=== PATIENT | male | born 1940 ===

== ENCOUNTER 2018-01-01 10:32 | Day surgery (SDC) | payer MEDICARE ==
[2017-10-04 09:38] VITALS: BMI 29.0
[2018-01-01 11:07] LABS: BASO # 0.01 K/mm3 (0.0-2.0); BASO % 0.1 % (0.0-3.0); EOS # 0.1 (0.0-0.7); EOS % 1.6 % (1.5-5.0); GRAN # 4.05 (1.4-6.5); GRAN % 58.2 % (50.0-68.0); HEMOGLOBIN 11.9 g/dL (14.0-18.0); LYMPH # 2.4 (1.2-3.4); LYMPH % 34.1 % (22.0-35.0); MEAN CORPUSCULAR HEMOGLOBIN 30.8 pg (25.0-35.0); MEAN CORPUSCULAR HGB CONC 33.1 g/dl (31.0-37.0); MEAN PLATELET VOLUME 9.9 fl (7.0-11.0); MONO # 0.4 (0.1-0.6); RBC 3.86 10^6/uL (3.5-6.1)
[2018-01-01 11:08] LABS: BLOOD UREA NITROGEN 25 mg/dL (7-21); CALCIUM 9.9 mg/dL (8.4-10.5); GFR AFRICAN-AMERICAN > 60; GFR NON-AFRICAN AMERICAN > 60
[2018-01-01 11:13] LABS: INR 0.87 (0.93-1.08); PARTIAL THROMBOPLASTIN TIME 31.3 Seconds (25.1-36.5)
[2018-01-01] MEDS ORDERED: Lidocaine 2% Inj (20ml) ONE (15:40)
[2018-01-01] MEDS ORDERED: Midazolam 2 MG/2 ML VIAL ONE ×2 (15:41→16:06)
[2018-01-01] MEDS ORDERED: Heparin 2,000 ML IV ONE (15:42)
[2018-01-01] MEDS ORDERED: Iodixanol 320 MG/ML 100 ML BOTTLE IV ONE (15:42)
[2018-01-01] MEDS ORDERED: Nitroglycerin 50mg in D5W 50 MG/250 ML BOTTLE IV ONE (15:42)
[2018-01-01] MEDS ORDERED: Iodixanol 320 MG/ML 200 ML BOTTLE IV ONE (15:42)
[2018-01-01] MEDS ORDERED: DiphenhydrAMINE 50 mg/ml Inj ONE (16:14)
[2018-01-01] MEDS ORDERED: Oxycodone/Acetaminophen 5/325 mg Tab PO PRN (18:03)
[2018-01-01] MEDS: Sodium Chloride 0.45% 1,000 ML IV SCH (19:00)
--- NOTE | 2018-01-01 19:12 | VASCULAR ---
PROCEDURE: 1. Abdominal aortogram and bilateral lower extremity runoff with left groin puncture and retrograde right pedal lacks the as HISTORY: Severe peripheral vascular disease. Nonhealing ulcer lateral aspect right mid foot. Diabetes. Previous smoker. PHYSICIAN(S): Yoav Rios M.D. TECHNIQUE: The relative risks and indications of the procedure were explained to the patient and consent obtained. The patient was hydrated prior to the procedure and the appropriate labs drawn. The patient was placed supine on the arteriogram table and the left groin prepped and draped in the usual sterile fashion. Conscious sedation and monitoring were provided throughout the procedure by a nurse. Via a left common femoral artery approach, a 5 Dutch sheath was placed in the left groin. Through the sheath and over a guidewire, a 5 Dutch flush catheter was placed in the abdominal aorta at the level of the renal arteries and a PA DSA abdominal aortogram performed. The catheter was pulled down to the aortic bifurcation and bilateral oblique DSA pelvic arteriograms performed. Overlapping bilateral lower extremity DSA arteriograms were obtained from the inguinal ligaments to the feet. A 0.035 angled Glidewire was advanced over the bifurcation and placed in the distal right SFA. A 6 Dutch 70 cm Yao sheath was placed in the distal right SFA. Heparin 4000 units IV and nitroglycerin in 250 mcg aliquots were given. Magnification images of the right foot in a lateral projection were performed. The diseased proximal right posterior tibial artery was engaged with a 5 Dutch catheter and angled Glidewire. Multiple catheters and wires were used in attempt to cross the chronically occluded right posterior tibial artery. These were unsuccessful. The right ankle was prepped and draped usual sterile fashion. With significant difficulty, the distal right posterior tibial artery was punctured with a micropuncture set. The calcified occluded right posterior tibial artery was probed with various 0.018 and 0.014 guidewires. The occlusion of the right posterior tibial artery could not be crossed in a retrograde direction. The catheters removed hemostasis obtained. The patient tolerated the procedure well. FINDINGS: There are single renal arteries bilaterally which are widely patent and normal in appearance. The nephrograms are symmetric in appearance. The infrarenal abdominal aorta is widely patent without a radiographically significant stenosis. The aortic bifurcation is widely patent. The common and external iliac arteries are normal in appearance without a significant stenosis. The internal iliac arteries are patent bilaterally. Right lower extremity: The right common femoral artery is patent with polypoid posterior plaque.. The right profunda femoral artery is patent. The right superficial femoral artery is patent and continuous without a radiographically significant stenosis. The right popliteal artery is continuous with a calcified 50 percent plaque at the patella. There is severe right trifurcation disease. Heavy calcification is noted. All 3 tibial arteries are occluded proximally. There is reconstitution of the distal right posterior tibial artery 6 cm above the ankle. There is reconstitution of a disease terminal right anterior tibial artery. The right dorsalis pedis artery is patent. Left lower extremity: Left common femoral artery is patent with mild posterior plaque.. The left profunda femoral artery is patent. The left superficial femoral artery is patent and continuous without a radiographically significant stenosis. Calcified eccentric stenoses are noted in the left popliteal artery. There is severe left trifurcation and tibial occlusive disease. The left anterior tibial artery occludes proximally. The predominant supply the left foot is the left posterior tibial artery. There is a polypoid severe stenosis of the left tibioperoneal trunk. The left peroneal artery reconstitutes proximally IMPRESSION: 1.Severe bilateral trifurcation, tibial, and pedal occlusive disease. 2. Unable across the right posterior tibial artery occlusion in an antegrade or retrograde direction. 3. The patient will be evaluated for right popliteal - distal bypass.
--- NOTE | 2018-01-02 01:16 | CP.PCM.CON ---
History of Present Illness - History of Present Illness History of Present Illness: Vascular surgery consult note for Dr. Teixeira Consulted for: PVD, non-healing right foot wound Patient is a 77M with PMH including DM, HTN, and PVD with chronic right foot ulcer. Patient is normally a very active person who ambulates on his own. He states that in July 2017 he slipped and fell and sustained a fracture of his distal fibula. He was admitted at [facility], had a closed reduction of the fracture and developed the wound on his right dorsal lateral foot from the dressings. He underwent multiple wound debridements by podiatry, was diagnosed with osteomyelitis, and was found to have BL tibial vascual disease worse on the right, with an angiocatherization and angioplasty of the right GEOTHERMAL OPERATING ENGINEER and tibioperoneal trunk by Dr. Calzada in September 2017. Wound has not healed and patient came to [facility] [place] today for same day angiocatheterization with Dr. Rios. Angiocath revealed Severe bilateral trifurcation, tibial, and pedal occlusive disease. Right posterior tibial artery occlusion was non-transversible in an antegrade or retrograde direction. patient was admitted for post operative observation and DR. Teixeira consulted for possible fem-popliteal bypass consideration Patient reports that he has claudication in the right leg with walking, and that when he sits his leg goes numb. Admits to a long smoking history that he quit last year. Denies any fevers, chills, or fould smelling discharger from the wound PMH: DM, HTN, and PVD with chronic right foot ulcer, osteomyelitis, nephrolithiasis, glaucoma PSH: BL inguinal hernia repairs, angioplasty right lower extremity, lithotripsy ALL: NKDA Social: 1PPD for 12 years, quit 2017. Heavy drinking history quit 18 years ago, denies illicit substances Review of Systems - Review of Systems All systems: reviewed and no additional remarkable complaints except (as per HPI ) Past Patient History - Past Medical History & Family History Past Medical History?: Yes - Past Social History Smoking Status: Former Smoker Alcohol: Other (former) Drugs: Denies - CARDIAC Hx Pacemaker: No - PULMONARY Hx Respiratory Disorders: No - NEUROLOGICAL Hx Paralysis: No - HEENT Hx HEENT Problems: No - RENAL Hx Chronic Kidney Disease: No - ENDOCRINE/METABOLIC Hx Endocrine Disorders: Yes Hx Diabetes Mellitus Type 2: Yes - HEMATOLOGICAL/ONCOLOGICAL Hx Blood Transfusions: No - INTEGUMENTARY Hx Dermatological Problems: Yes Other/Comment: Right distula fibula ulcer - MUSCULOSKELETAL/RHEUMATOLOGICAL Hx Musculoskeletal Disorders: Yes - GASTROINTESTINAL Hx Gastrointestinal Disorders: No - GENITOURINARY/GYNECOLOGICAL Hx Genitourinary Disorders: No - PSYCHIATRIC Hx Emotional Abuse: No Hx Physical Abuse: No Hx Substance Use: No - SURGICAL HISTORY Hx Surgeries: Yes - ANESTHESIA Hx Anesthesia Reactions: No Hx Malignant Hyperthermia: No Meds Allergies/Adverse Reactions: Allergies Allergy/AdvReac Type Severity Reaction Status Date / Time No Known Allergies Allergy Verified 10/04/17 09:41 - Medications Medications: Current Medications Acetaminophen (Tylenol 325mg Tab) 650 mg PO Q4H PRN PRN Reason: Pain, Mild (1-3) Amlodipine Besylate (Norvasc) 5 mg PO DAILY [facility] Ampicillin (Ampicillin) 500 mg PO DAILY [facility] PRN Reason: Protocol Atorvastatin Calcium (Lipitor) 20 mg PO DAILY [facility] Ciprofloxacin (Cipro) 500 mg PO BID [facility] PRN Reason: Protocol Clopidogrel Bisulfate (Plavix) 75 mg PO DAILY [facility] Sodium Chloride (Sodium Chloride 0.45%) 1,000 mls @ 80 mls/hr IV .[id number] [facility] Last Admin: 01/01/18 19:00 Dose: 80 mls/hr Metformin HCl (Glucophage Xr) 1,000 mg PO BID [facility] Ondansetron HCl (Zofran Inj) 4 mg IVP ONCE PRN PRN Reason: Nausea/Vomiting Oxycodone/Acetaminophen (Percocet 5/325 Mg Tab) 1 tab PO Q4H PRN PRN Reason: Pain, moderate (4-7) Stop: 01/04/18 18:04 Pioglitazone HCl (Actos) 15 mg PO DAILY [facility] Tamsulosin HCl (Flomax) 0.4 mg PO DAILY [facility] Physical Exam - Constitutional Appears: Well, Non-toxic, No Acute Distress - Head Exam Head Exam: ATRAUMATIC, NORMOCEPHALIC - Eye Exam Eye Exam: Normal appearance. absent: Conjunctival injection, Scleral icterus - ENT Exam ENT Exam: Mucous Membranes Moist, Normal Oropharynx - Respiratory Exam Respiratory Exam: NORMAL BREATHING PATTERN. absent: Accessory Muscle Use, Respiratory Distress - Cardiovascular Exam Cardiovascular Exam: RRR - GI/Abdominal Exam GI & Abdominal Exam: Soft. absent: Distended, Hernia, Tenderness - Extremities Exam Extremities exam: Negative for: calf tenderness, pedal edema Additional comments: access sites with dressings c/d/i, no swelling or bleeding right dorsal lateral foot with oval wound approximatley 3cm in diameter extending into the subcutaneous fat with no overt tendon exposure, surrounding erythema, necrotic tissue, foul smell, or drianage BL DP and TP with strong dopplerable signals. Foot warm - Neurological Exam Neurological exam: Alert, Oriented x3 - Psychiatric Exam Psychiatric exam: Normal Affect, Normal Mood - Skin Skin Exam: Dry, Normal Color, Warm Results - Vital Signs Recent Vital Signs: Last Vital Signs Temp 98 F 01/01/18 23:21 Pulse 68 01/01/18 23:30 Resp 18 01/01/18 23:30 BP 136/62 01/01/18 23:30 Pulse Ox 94 L 01/01/18 23:21 - Labs Result Diagrams: 01/01/18 10:45 01/01/18 10:45 Labs: Laboratory Results - last 24 hr 01/01/18 01/01/18 01/01/18 10:45 10:45 10:45 WBC 7.0 RBC 3.86 Hgb 11.9 L Hct 35.9 L MCV 93.0 MCH 30.8 MCHC 33.1 RDW 14.0 Plt Count 247 MPV 9.9 Gran % 58.2 Lymph % (Auto) 34.1 [place] % (Auto) 6.0 Eos % (Auto) 1.6 Baso % (Auto) 0.1 Gran # 4.05 Lymph # (Auto) 2.4 [place] # (Auto) 0.4 Eos # (Auto) 0.1 Baso # (Auto) 0.01 PT 10.0 INR 0.87 L APTT 31.3 Sodium 144 Potassium 5.0 Chloride 104 Carbon Dioxide 28 Anion Gap 17 BUN 25 H Creatinine 1.0 Est GFR ( Amer) > 60 Est GFR (Non-Af Amer) > 60 POC Glucose (mg/dL) Random Glucose 128 H Calcium 9.9 01/01/18 21:31 WBC RBC Hgb Hct MCV MCH MCHC RDW Plt Count MPV Gran % Lymph % (Auto) [place] % (Auto) Eos % (Auto) Baso % (Auto) Gran # Lymph # (Auto) [place] # (Auto) Eos # (Auto) Baso # (Auto) PT INR APTT Sodium Potassium Chloride Carbon Dioxide Anion Gap BUN Creatinine Est GFR ( Amer) Est GFR (Non-Af Amer) POC Glucose (mg/dL) 153 H Random Glucose Calcium Assessment & Plan - Assessment and Plan (Free Text) Assessment: 77M with severe tibioperonial disease worse on the right and chronic right dorsal lateral foot wound, refractory to revascularization attempts, antibiotics , and debridements Plan: No indicatino for emergent surgery Will discuss options and plan of action with Dr. Teixeira--further recs per her F/U AM labs PT Local wound care per podiatry Continue plavix until OR time decided PRN pain medication Will discuss with Dr. Puneet Walker, PGY2
[2018-01-02 06:31] LABS: HEMOGLOBIN 11.3 g/dL (14.0-18.0); MEAN CELL VOLUME 92.2 fl (80.0-105.0); MEAN CORPUSCULAR HEMOGLOBIN 30.2 pg (25.0-35.0); MEAN CORPUSCULAR HGB CONC 32.8 g/dl (31.0-37.0); MEAN PLATELET VOLUME 9.9 fl (7.0-11.0); RBC 3.74 10^6/uL (3.5-6.1); WHITE BLOOD COUNT 7.1 10^3/ul (4.5-11.0)
[2018-01-02 07:05] LABS: CALCIUM 9.2 mg/dL (8.4-10.5)
[2018-01-02 07:11] LABS: BLOOD UREA NITROGEN 18 mg/dL (7-21); GFR AFRICAN-AMERICAN > 60; GFR NON-AFRICAN AMERICAN > 60
[2018-01-02] MEDS: Sodium Chloride 0.45% 1,000 ML IV SCH (08:09)
[2018-01-02 12:20] VITALS: O2SAT 97
--- NOTE | 2018-01-02 12:34 | RAD ---
PROCEDURE: Right Foot Radiographs. HISTORY: r/o osteomyelitis COMPARISON: None. FINDINGS: BONES: Normal. No fracture. No evidence of osteomyelitis JOINTS: Degenerative changes are seen in the 1st MTP joint. SOFT TISSUES: Normal. OTHER FINDINGS: None. IMPRESSION: There is no evidence of osteomyelitis
[2018-01-02 12:57] VITALS: BP 140/80; PULSE 80; RESP 17; TEMP 98.5
== END 2018-01-02 13:43 | disposition home or self-care (01) ==
LOC: SDSVAS 10:32 → 2RNO 19:00 → SDSVAS 01-02 13:43
PROVIDERS: ATTEND Radiology Vascular & Interventional Radiology
DX: E11.51 Type 2 diabetes mellitus with diabetic peripheral angiopathy without gangrene (principal); I70.209 Unspecified atherosclerosis of native arteries of extremities, unspecified extremity; E11.621 Type 2 diabetes mellitus with foot ulcer; L97.519 Non-pressure chronic ulcer of other part of right foot with unspecified severity; E11.69 Type 2 diabetes mellitus with other specified complication; M86.9 Osteomyelitis, unspecified; I10 Essential (primary) hypertension; H40.9 Unspecified glaucoma; Z87.891 Personal history of nicotine dependence; Z87.81 Personal history of (healed) traumatic fracture; Z87.442 Personal history of urinary calculi
CPT/HCPCS: 36140; 36247; 36415 ×2; 73630; 75625; 75716; 80048 ×2; 82948 ×2; 85025; 85027; 85610; 85730; 99152; 99153; C1725 ×3; C1760; C1769 ×6; C1887; C1892; C1894; J1200; J1644 ×2; J2250; J2405; J3010; J7030 ×2; Q9966; Q9967

== ENCOUNTER 2018-01-13 10:10 | Inpatient (IN) | payer MEDICARE ==
[2018-01-13] MEDS ORDERED: Vancomycin 1 g Inj IVPB ONE (11:45)
[2018-01-13] MEDS ORDERED: Vancomycin 1gm in NS 250ml 1 GM/250 ML BAG IVPB ONE (11:45)
[2018-01-13 11:50] LABS: VENOUS BLOOD GAS BASE EXCESS -2.3 mmol/L (0.0-2.0); VENOUS BLOOD GAS PO2 56 mm/Hg (30-55); VENOUS BLOOD PH 7.29 (7.32-7.43)
[2018-01-13 11:52] LABS: BASO # 0.02 K/mm3 (0.0-2.0); BASO % 0.2 % (0.0-3.0); EOS # 0.1 (0.0-0.7); EOS % 1.7 % (1.5-5.0); GRAN # 4.67 (1.4-6.5); GRAN % 58.4 % (50.0-68.0); HEMOGLOBIN 11.7 g/dL (14.0-18.0); LYMPH # 2.5 (1.2-3.4); LYMPH % 31.2 % (22.0-35.0); MEAN CELL VOLUME 92.6 fl (80.0-105.0); MEAN CORPUSCULAR HGB CONC 33.4 g/dl (31.0-37.0); MEAN PLATELET VOLUME 9.8 fl (7.0-11.0); MONO # 0.7 (0.1-0.6); MONO % 8.5 % (1.0-6.0); RBC 3.78 10^6/uL (3.5-6.1); RED CELL DISTRIBUTION WIDTH 13.9 % (11.5-14.5)
[2018-01-13 11:59] VITALS: BMI 29.0
[2018-01-13 12:08] LABS: ALB/GLOB RATIO 1.5 (1.1-1.8); ALBUMIN 4.4 g/dL (3.0-4.8); ALT/SGPT 23 U/L (7-56); AST/SGOT 17 U/L (17-59); BLOOD UREA NITROGEN 35 mg/dL (7-21); CALCIUM 9.8 mg/dL (8.4-10.5); GFR AFRICAN-AMERICAN > 60; GFR NON-AFRICAN AMERICAN > 60
--- NOTE | 2018-01-13 12:10 | CARD ---
APPROVED REPORT EKG Measurement Heart [id number] <Conclusion> Normal sinus rhythm Normal ECG
[2018-01-13 12:12] LABS: URINE BILIRUBIN NEGATIVE (NEGATIVE); URINE BLOOD NEGATIVE (NEGATIVE); URINE GLUCOSE (UA) NEGATIVE (NEGATIVE); URINE LEUKOCYTE ESTERASE NEGATIVE Leu/uL (NEGATIVE); URINE PROTEIN TRACE mg/dL (<30 mg/dL); URINE UROBILINOGEN 0.2 E.U./dL (<1 E.U./dL)
[2018-01-13 12:13] LABS: TROPONIN I < 0.01 ng/mL
[2018-01-13 12:13] LABS: URINE COLOR YELLOW (YELLOW)
[2018-01-13 12:14] LABS: URINE APPEARANCE CLEAR (CLEAR)
--- NOTE | 2018-01-13 12:16 | RAD ---
PROCEDURE: CHEST RADIOGRAPH, 1 VIEW HISTORY: Sepsis Patient COMPARISON: None available. FINDINGS: LUNGS: Clear. PLEURA: No pneumothorax or pleural fluid seen. CARDIOVASCULAR: Normal. OSSEOUS STRUCTURES: No significant abnormalities. VISUALIZED UPPER ABDOMEN: Normal. OTHER FINDINGS: None. IMPRESSION: No active disease.
[2018-01-13 12:17] LABS: URINE BACTERIA FEW (NEG); URINE RBC 0 - 2 /hpf (0-2)
[2018-01-13 12:19] LABS: INR 0.92 (0.93-1.08); PARTIAL THROMBOPLASTIN TIME 31.5 Seconds (25.1-36.5); PROTHROMBIN TIME 10.6 SECONDS (9.4-12.5)
--- NOTE | 2018-01-13 12:19 | RAD ---
PROCEDURE: Right Foot Radiographs. HISTORY: [facility] COMPARISON: 01/02/2018 FINDINGS: BONES: No evidence of osteomyelitis. JOINTS: Degenerative changes in the 1st MTP joint SOFT TISSUES: Soft tissue ulcer adjacent to the base of the 5th metatarsal OTHER FINDINGS: None. IMPRESSION: No evidence of osteomyelitis
--- NOTE | 2018-01-13 12:59 | CP.PCM.CON ---
History of Present Illness - History of Present Illness History of Present Illness: Berry Radha PGY1 Surgery Consult Note for Dr. Teixeira Mr. Jones is a 77 yo Male with a PMH including DM2 (insulin dependent) and PVD with chronic right foot ulcer. Chart review shows that in July 2017, the patient slipped and fell and sustained a fracture of his distal fibula. He was admitted at [facility], had a closed reduction of the fracture and developed the wound on his right dorsal lateral foot from the dressings. He underwent multiple wound debridements by podiatry, was diagnosed with osteomyelitis, and was found to have B/L tibial vascual disease worse on the right, with an angiocatherization and angioplasty of the right EXPLORATION GEOLOGIST and tibioperoneal trunk by Dr. Calzada in September 2017. Wound has not healed and patient came to [facility] today for same day angiocatheterization with Dr. Rios. Angiocath revealed Severe bilateral trifurcation, tibial, and pedal occlusive disease. Right posterior tibial artery occlusion was non-transversible in an antegrade or retrograde direction. Patient now returns for severe pain in the right foot and the ulcer which is non-healing, but he is still able to ambulate with the use of a cane. Denies any fevers, chills, or foul smelling discharge from the wound PMH: DM and PVD with chronic right foot ulcer, osteomyelitis, nephrolithiasis, glaucoma PSH: BL inguinal hernia repairs, angioplasty right lower extremity, lithotripsy ALL: NKDA Social: 1PPD for 12 years, quit 2017. Heavy drinking history quit 18 years ago, denies illicit substances PMD: [facility] Podiatry: Marco Antonio [facility]ows Review of Systems - Review of Systems All systems: reviewed and no additional remarkable complaints except (as per HPI ) Past Patient History - Past Medical History & Family History Past Medical History?: Yes - Past Social History Smoking Status: Former Smoker Alcohol: None Drugs: Denies - CARDIAC Hx Cardiac Disorders: No Hx Pacemaker: No - PULMONARY Hx Respiratory Disorders: No - NEUROLOGICAL Hx Neurological Disorder: No Hx Paralysis: No - HEENT Hx HEENT Problems: No - RENAL Hx Kidney Stones: Yes - ENDOCRINE/METABOLIC Hx Endocrine Disorders: Yes Hx Diabetes Mellitus Type 2: Yes - HEMATOLOGICAL/ONCOLOGICAL Hx Blood Disorders: No Hx Blood Transfusions: No - INTEGUMENTARY Hx Dermatological Problems: Yes Other/Comment: Right distula fibula ulcer - MUSCULOSKELETAL/RHEUMATOLOGICAL Hx Musculoskeletal Disorders: Yes - GASTROINTESTINAL Hx Gastrointestinal Disorders: No - GENITOURINARY/GYNECOLOGICAL Hx Genitourinary Disorders: No - PSYCHIATRIC Hx Emotional Abuse: No Hx Physical Abuse: No Hx Substance Use: No - SURGICAL HISTORY Hx Surgeries: Yes Hx Angiogram: Yes Hx Angioplasty: Yes Hx Herniorrhaphy: Yes Other/Comment: kidney stones - ANESTHESIA Hx Anesthesia Reactions: No Hx Malignant Hyperthermia: No Meds Allergies/Adverse Reactions: Allergies Allergy/AdvReac Type Severity Reaction Status Date / Time No Known Allergies Allergy Verified 01/13/18 16:46 - Medications Medications: Current Medications Vancomycin HCl (Vancomycin 1gm) 1 gm in 250 mls @ 166.667 mls/hr IVPB ONCE ONE Stop: 01/13/18 13:14 Physical Exam - Constitutional Appears: Well, Non-toxic, No Acute Distress - Head Exam Head Exam: NORMAL INSPECTION - Eye Exam Eye Exam: Normal appearance - ENT Exam ENT Exam: Mucous Membranes Moist - Neck Exam Neck exam: Positive for: Normal Inspection - Respiratory Exam Respiratory Exam: NORMAL BREATHING PATTERN. absent: Wheezes - Cardiovascular Exam Cardiovascular Exam: RRR, +S1, +S2 - GI/Abdominal Exam GI & Abdominal Exam: Soft. absent: Distended, Tenderness - Extremities Exam Extremities exam: Positive for: full ROM, pedal pulses present (by doppler; none felt by palpation) Additional comments: right foot ulcer w/ gauze dressing c/d/i - Back Exam Back exam: NORMAL INSPECTION - Neurological Exam Neurological exam: Alert - Psychiatric Exam Psychiatric exam: Normal Mood - Skin Skin Exam: Normal Color Results - Vital Signs Recent Vital Signs: Last Vital Signs Temp 98.0 F 01/13/18 11:17 Pulse 85 01/13/18 11:17 Resp 18 01/13/18 11:17 BP 138/76 01/13/18 11:17 Pulse Ox 98 01/13/18 11:17 - Labs Result Diagrams: 01/13/18 11:20 01/13/18 11:20 Labs: Laboratory Results - last 24 hr 01/13/18 01/13/18 01/13/18 11:20 11:20 11:20 WBC 8.0 RBC 3.78 Hgb 11.7 L Hct 35.0 L MCV 92.6 MCH 31.0 MCHC 33.4 RDW 13.9 Plt Count 266 MPV 9.8 Gran % 58.4 Lymph % (Auto) 31.2 [place] % (Auto) 8.5 H Eos % (Auto) 1.7 Baso % (Auto) 0.2 Gran # 4.67 Lymph # (Auto) 2.5 [place] # (Auto) 0.7 H Eos # (Auto) 0.1 Baso # (Auto) 0.02 PT 10.6 INR 0.92 L APTT 31.5 pO2 56 H VBG pH 7.29 L VBG pCO2 52.0 VBG HCO3 25.0 VBG Total CO2 26.6 VBG O2 Sat (Calc) 86.7 H VBG Base Excess -2.3 L VBG Potassium 4.4 Sodium 138.0 Chloride 105.0 Glucose 167 H Lactate 1.9 FiO2 21.0 Potassium Carbon Dioxide Anion Gap BUN Creatinine Est GFR ( Amer) Est GFR (Non-Af Amer) Random Glucose Calcium Magnesium Total Bilirubin AST ALT Alkaline Phosphatase Troponin I Total Protein Albumin Globulin Albumin/Globulin Ratio Venous Blood Potassium 4.4 Urine Color Urine Appearance Urine pH Ur Specific Bascom Urine Protein Urine Glucose (UA) Urine Ketones Urine Blood Urine Nitrate Urine Bilirubin Urine Urobilinogen Ur Leukocyte Esterase Urine RBC Urine WBC Ur Epithelial Cells Urine Bacteria 01/13/18 01/13/18 11:20 11:50 WBC RBC Hgb Hct MCV MCH MCHC RDW Plt Count MPV Gran % Lymph % (Auto) [place] % (Auto) Eos % (Auto) Baso % (Auto) Gran # Lymph # (Auto) [place] # (Auto) Eos # (Auto) Baso # (Auto) PT INR APTT pO2 VBG pH VBG pCO2 VBG HCO3 VBG Total CO2 VBG O2 Sat (Calc) VBG Base Excess VBG Potassium Sodium 144 Chloride 104 Glucose Lactate FiO2 Potassium 5.1 H Carbon Dioxide 26 Anion Gap 19 BUN 35 H Creatinine 1.1 Est GFR ( Amer) > 60 Est GFR (Non-Af Amer) > 60 Random Glucose 155 H Calcium 9.8 Magnesium 1.7 Total Bilirubin 0.2 AST 17 D ALT 23 Alkaline Phosphatase 69 Troponin I < 0.01 Total Protein 7.3 Albumin 4.4 Globulin 3.0 Albumin/Globulin Ratio 1.5 Venous Blood Potassium Urine Color Yellow Urine Appearance Clear Urine pH 6.0 Ur Specific Bascom 1.025 Urine Protein Trace H Urine Glucose (UA) Negative Urine Ketones Negative Urine Blood Negative Urine Nitrate Negative Urine Bilirubin Negative Urine Urobilinogen 0.2 Ur Leukocyte Esterase Negative Urine RBC 0 - 2 Urine WBC 1 - 3 Ur Epithelial Cells None Urine Bacteria Few Assessment & Plan - Assessment and Plan (Free Text) Assessment: 77 yo M with a PMH DM2 and PAD who presents with non-healing right foot ulcer, sent to ER by Dr. Teixeira for RLE bypass. Cardiology pre-op clearance is pending. Plan: plan for OR for RLE bypass on 01/[address] Teixeira vein mapping done on 01/09/18, requires official reading Cardiology, Dr. Ray, consulted for pre-op clearance Will be NPO past MN tomorrow night pending medical clearance for OR cont Plavix Case was reviewed and discussed with Dr. Teixeira
--- NOTE | 2018-01-13 14:35 | US ---
HISTORY: Leg pain and swelling. Evaluate for DVT PHYSICIAN(S): Yoav Rios MD. TECHNIQUE: Duplex sonography and color-flow Doppler with graded compression were used to evaluate the deep venous systems of both lower extremities. FINDINGS: The visualized deep venous systems of both lower extremities are sonographically normal and compressible. Normal wave forms and augmentation are seen. There is no sonographic evidence for deep venous thrombosis in the visualized segments of both lower extremities. IMPRESSION: No sonographic evidence for deep venous thrombosis in the visualized segments of both lower extremities.
[2018-01-13] MEDS ORDERED: Sodium Chloride 0.9% 1,000 ML IV STA (14:53)
[2018-01-13] MEDS: Insulin Reg-LOW-Coverage SC SCH ×2 (18:02→21:41)
[2018-01-13] MEDS ORDERED: Pneumococcal 23-Valent Vaccine IM ONE (20:32)
--- NOTE | 2018-01-14 00:58 | HP ---
DATE OF EXAM: 01/13/2018 CHIEF COMPLAINT: Foot pain. HISTORY OF PRESENT ILLNESS: Mr. Jones is a 77-year-old male, I took care of him in the [facility] with past medical history of diabetes mellitus type 2, insulin dependent; PVD with chronic right foot ulcer. The patient was slipped and fell, sustained fracture of his distal fibula in 07/2017, was admitted to [facility], has a closed reduction of the fracture. Developed wound on his right dorsolateral foot from the dressing. He underwent wound debridement by Podiatry, was diagnosed with osteomyelitis and was found to have bilateral tibial vascular disease, worse on the right and angiocatheterization and angioplasty of the right PFA and tibioperoneal trunk by Dr. Calzada in September 2017. Wound has not healed and the patient came to [facility] on same day angiocatheterization with Dr. Yoav Rios. Angiocath revealed severe bilateral trifurcation, tibial and pedal occlusive disease. Right posterior tibial artery occlusion was nontransversable in an antegrade or retrograde direction. The patient now returns for severe pain in the right foot and ulcer, which is nonhealing, but is still able to ambulate with the use of cane. No fever. No chills. No foul-smelling discharge from the wound. No nausea or vomiting. No headache. No dizziness. PAST MEDICAL HISTORY: As above, insulin-dependent diabetes mellitus type 2, PVD with chronic right foot ulcers, osteomyelitis, nephrolithiasis, glaucoma, bilateral inguinal hernia repair, angioplasty of right lower extremity, lithotripsy. ALLERGIES: THE PATIENT IS NOT ALLERGIC WITH ANY MEDICATIONS. FAMILY HISTORY: Father and mother, noncontributory. HABITS: Smoking 1 pack per day for 12 years, quit in 2017; heavy drinking history, quit 18 years ago. Denies illicit substances. REVIEW OF SYSTEMS: The patient was seen and examined on the bedside on 01/13/2018, looking comfortable. Has dressing on the foot. No headache. No dizziness. No chest pain. No palpitation. No fever. No chills. PHYSICAL EXAMINATION: VITAL SIGNS: Temperature 98, pulse 85, respiratory rate 18, blood pressure 138/76, pulse oximetry 98. HEENT: Head normocephalic, atraumatic. Eyes PERRLA. Extraocular muscles intact. Conjunctivae clear. Nose patent. Mucous membrane moist. NECK: Supple. No carotid bruit. No JVD or thyromegaly. CHEST: Bilaterally symmetrical. HEART: S1 and S2 positive. LUNGS: Clear to auscultation. ABDOMEN: Soft. Bowel sounds positive. No organomegaly. EXTREMITIES: No edema. No cyanosis except right foot had dressing. LABORATORY DATA: White blood cells 8, hemoglobin 11.7, hematocrit noted , platelets 266. Sodium 144, potassium 5.1, BUN 35, creatinine 1.1, glucose 155. ASSESSMENT AND PLAN: Mr. Ozzie Jones, a 77-year-old male with hyperkalemia, renal insufficiency, hyperglycemia, anemia with past medical history of insulin-dependent diabetes mellitus type 2, peripheral arterial disease, came with nonhealing right foot ulcer. Sent here by Dr. Teixeira for right lower extremity bypass. History of hypertension, hypercholesterolemia. We will call Cardiology consult for clearance. Plan for Operative Room for right lower extremity bypass on , 01/15/[address] Teixeira. Vein mapping done on 01/09/2018. Requires official reading. Cardiology consult called with Dr. Ray for cardiac clearance. Extremity ultrasound done, reviewed by me. Gastrointestinal, deep venous thrombosis prophylaxis done. Repeat labs. We will follow up. Vivian Norris MD [id number]
[2018-01-14 06:52] LABS: BASO # 0.01 K/mm3 (0.0-2.0); BASO % 0.1 % (0.0-3.0); EOS # 0.1 (0.0-0.7); EOS % 1.7 % (1.5-5.0); GRAN # 4.38 (1.4-6.5); GRAN % 62.7 % (50.0-68.0); LYMPH # 1.8 (1.2-3.4); LYMPH % 25.8 % (22.0-35.0); MEAN CELL VOLUME 92.3 fl (80.0-105.0); MEAN CORPUSCULAR HEMOGLOBIN 30.1 pg (25.0-35.0); MEAN CORPUSCULAR HGB CONC 32.6 g/dl (31.0-37.0); MEAN PLATELET VOLUME 9.7 fl (7.0-11.0); MONO # 0.7 (0.1-0.6); MONO % 9.7 % (1.0-6.0); RBC 3.65 10^6/uL (3.5-6.1); RED CELL DISTRIBUTION WIDTH 13.8 % (11.5-14.5)
[2018-01-14 07:05] LABS: LDL CHOLESTEROL 42 mg/dL (0-129)
[2018-01-14 07:14] LABS: ALB/GLOB RATIO 1.3 (1.1-1.8); ALT/SGPT 28 U/L (7-56); AST/SGOT 22 U/L (17-59); BLOOD UREA NITROGEN 22 mg/dL (7-21); CALCIUM 9.2 mg/dL (8.4-10.5); GFR AFRICAN-AMERICAN > 60; GFR NON-AFRICAN AMERICAN > 60; HDL CHOLESTEROL 42 mg/dL (29-60)
[2018-01-14] MEDS: Insulin Reg-LOW-Coverage SC SCH ×4 (07:30→22:41)
--- NOTE | 2018-01-14 08:36 | CON ---
DATE: 01/13/2018 CARDIOLOGY CONSULTATION REASON FOR CONSULTATION AND FOLLOWUP: Preop evaluation, risk stratification for bypass, possible popliteal to tibial bypass. BRIEF CLINICAL HISTORY: This is a 77-year-old male, ex-smoker, diabetic for more than 15 years, history of peripheral arterial disease, history of malleolar fracture, nonhealing ulcers, found to be PAD. So, the patient is scheduled for lower extremity bypass. For preop evaluation and risk stratification, Cardiology consult was called. The patient denies any chest pain, shortness of breath, or any palpitation. The patient was very active before the fracture and climbing stairs. No chest pain. PAST MEDICAL HISTORY: Significant for diabetes for more than 15 years. SOCIAL HISTORY: Ex-smoker, quit 25 years ago. Denies any history of alcohol abuse. Used to do the construction work, retired for 10 years. FAMILY HISTORY: Noncontributory. PAST SURGICAL HISTORY: Significant for a stone removal and hernia surgery many years ago. CURRENT MEDICATIONS: The patient at home taking amlodipine 5 mg daily, Flomax 0.4 mg daily, Actos 15 mg daily, metformin 1 g twice a day, Plavix 75 mg daily, ciprofloxacin 500 mg daily, atorvastatin 20 mg daily, ampicillin 500 mg p.o. daily. PREVIOUS CARDIAC WORKUP: The patient had on 01/01/2018 abdominal aortogram with bilateral lower extremity runoff, bilateral peripheral angiogram was done that revealed severe bilateral trifurcation tibial and pedal occlusive disease, unable to cross posterior tibial artery occlusion in retrograde. The patient is evaluated for right popliteal bypass, dated 01/01/2018. The patient had an echocardiography done in [facility] on 10/21/2017 that revealed ejection fraction 75%, diastolic dysfunction. No significant gradient across the mitral valve noted. No significant AR. No significant gradient across aortic valve noted and no significant TR, RV systolic pressure 30, dated 10/21/2017, read by Dr. Roe. REVIEW OF SYSTEMS: As per HPI. PHYSICAL EXAMINATION: Height of the patient is 5 feet 6 inches. Weight of the patient is 180 pounds. Body mass index 29.1 kg/m2. LABORATORY DATA: EKG shows normal sinus rhythm, no acute ST-T changes noted. Blood work as follows: WBC 8, hemoglobin 11.3, hematocrit 35, platelet count 266. Chemistry shows sodium 144, potassium 5.1, chloride 104, carbon dioxide 26, anion gap of , BUN 35, creatinine 1.1. Troponin 0.01. IMPRESSION: This is a 77-year-old male with a past medical history of diabetes, peripheral arterial disease, ex-smoker, came with a nonhealing ulcer, two weeks ago underwent peripheral angiogram that showed severe trifurcation disease, not amenable to percutaneous coronary intervention, now the patient is scheduled for popliteal bypass. No evidence of ischemia. No evidence of congestive heart failure and no evidence of arrhythmia, but given the multiple risk factors of coronary artery disease including peripheral arterial disease increased risks of coronary artery disease, suggest a stress test. Though, the patient had an echo done in September was essentially normal. Further recommendation after the stress test. We will get lipid profile, TSH, hemoglobin A1c. Thank you, , for providing us the opportunity in taking care of the patient, Ozzie Jones. Further recommendations will be made after the stress test. Dane Ray MD
--- NOTE | 2018-01-14 09:41 | CON ---
DATE: 01/14/2018 LOCATION: The patient is seen in room 374, bed 1 early this morning. CHIEF COMPLAINT: Right foot ulcer times several weeks. HISTORY OF PRESENT ILLNESS: This is a 77-year-old male with history of diabetes mellitus, history of peripheral vascular disease, history of right foot ulcer and multiple foot surgeries in the past, who has had angioplasty in the right leg. There were no known allergies. Now, admitted for further care of the right foot. The patient denies any trauma. No fevers. No chills. No nausea. No vomiting. No chest pain. REVIEW OF SYSTEMS: Twelve-point review of systems is performed. He denies any diarrhea. No abdominal pain, diarrhea or constipation. No bright red blood per rectum. No melena. PAST MEDICAL HISTORY: Significant for diabetes mellitus type 2, insulin dependent; peripheral vascular disease. He has had a distal fracture in the past and he has had closed reduction of the fracture. Developed a wound on the right dorsolateral foot and he has had multiple debridement by Podiatry, was diagnosed with osteomyelitis and vascular disease and had angiocatheterization, angioplasty of the right femoral artery and tibioperoneal trunk by Dr. Calzada in 09/2017. PAST SURGICAL HISTORY: Significant for angioplasty of the right leg. ALLERGIES: THE PATIENT HAS NO KNOWN ALLERGIES. MEDICATIONS AT HOME: Reveal the patient to be on Norvasc, Flomax, Actos, metformin, Plavix, Cipro, Lipitor. PHYSICAL EXAMINATION: GENERAL: The patient is in bed. VITAL SIGNS: Temperature of 98, blood pressure is 130/60, respiratory rate of 18, pulse of 78. HEENT: Examination of HEENT is unremarkable. NECK: Supple. LUNGS: Have decreased breath sounds. HEART: Normal S1 and S2. ABDOMEN: Soft, nontender. No rebound. No guarding. No masses. EXTREMITIES: Examination of the right foot reveals an ulcer approximately 1.5-2 cm in diameter in the lateral aspect of the right foot. There is no erythema. No discharge. No evidence of an active infection. Just a chronic open large ulcer on the lateral aspect of the right foot. Pulses are intact. LABORATORY DATA: Laboratory examination reveals a white count of 8, hemoglobin of 11, platelets of 266. Chemistries are noted. BUN of 22, creatinine of 0.9. Urinalysis is noted and microbiology reveals a right foot culture from 11/25/2017 is Enterococcus, probably a colonizer, not a true pathogen. Another culture from September showed Enterobacter cloacae from the right foot. All the blood cultures to be negative. The Enterobacter cloacae was a heavy growth and a relatively sensitive organism, resistant to cefazolin. No anaerobes had grown. Multiple other cultures have been negative from the proximal bone. Dr. Norris's history and physical examination is reviewed. ASSESSMENT AND PLAN: This is a 77-year-old male with diabetes mellitus, peripheral vascular disease, chronic right foot ulcer. #1 is a right foot lateral aspect of the right foot ulcer nonhealing in the lateral aspect with approximately 1.5-2 cm in diameter. It is chronic. I would not start any antibiotics at this point. Recommend a deep tissue biopsy. Biopsy should be sent for Gram stain and routine cultures in addition to acid-fast bacillus stain and acid-fast bacillus cultures and fungal stains and fungal cultures and should be sent to pathology. Also, look for pyoderma gangrenosum in this ulcer. Should have an MRI to rule out underlying osteomyelitis, a sedimentation rate, C-reactive protein and special stains and deep tissue cultures as stated for routine Gram-stain cultures, acid-fast bacillus, fungal smears and cultures and workup for pyoderma gangrenosum. We will hold off antibiotics pending Podiatry and Vascular Surgical involvement and tissue biopsy and MRI of the right foot. Leland Rodas MD
--- NOTE | 2018-01-14 10:30 | CP.PCM.PN ---
Subjective - Date & Time of Evaluation Date of Evaluation: 01/14/18 Time of Evaluation: 10:55 - Subjective Subjective: Vascular Surgery Note for Dr. Teixeira Patient seen and examined at bedside. Patient was NPO past midnight for stress test this morning. Patient had vein mapping done which showed normal GSV above and below the knee. Patient's only complaint is that he is hungry. He denies any other complaint at this time. Objective - Vital Signs/Intake and Output Vital Signs (last 24 hours): Temp Pulse Resp BP Pulse Ox 97.5 F L 62 18 149/84 98 01/14/18 08:58 01/14/18 08:58 01/14/18 08:58 01/14/18 08:58 01/14/18 08:58 Intake and Output: 01/14/18 01/14/18 06:59 18:59 Intake Total 2020 Output Total 2500 Balance -480 - Medications Medications: Current Medications Amlodipine Besylate (Norvasc) 5 mg PO DAILY [facility] Atorvastatin Calcium (Lipitor) 20 mg PO DAILY [facility] Clopidogrel Bisulfate (Plavix) 75 mg PO DAILY [facility] Famotidine (Pepcid) 40 mg PO HS [facility] Last Admin: 01/13/18 21:45 Dose: 40 mg Insulin Human Regular (Humulin R Low) 0 units SC ACHS [facility] PRN Reason: Protocol Last Admin: 01/13/18 21:41 Dose: Not Given Metformin HCl (Glucophage Xr) 1,000 mg PO BID [facility] Last Admin: 01/13/18 18:18 Dose: 1,000 mg Pioglitazone HCl (Actos) 15 mg PO DAILY [facility] Tamsulosin HCl (Flomax) 0.4 mg PO DAILY [facility] - Labs Labs: 01/14/18 06:00 01/14/18 06:00 PT 10.6 SECONDS (9.4-12.5) 01/13/18 11:20 INR 0.92 (0.93-1.08) L 01/13/18 11:20 APTT 31.5 Seconds (25.1-36.5) 01/13/18 11:20 - Additional Findings Additional findings: - Constitutional Appears: Well, Non-toxic, No Acute Distress - Head Exam Head Exam: NORMAL INSPECTION - Eye Exam Eye Exam: Normal appearance - ENT Exam ENT Exam: Mucous Membranes Moist - Neck Exam Neck exam: Positive for: Normal Inspection - Respiratory Exam Respiratory Exam: NORMAL BREATHING PATTERN. absent: Wheezes - Cardiovascular Exam Cardiovascular Exam: RRR, +S1, +S2 - GI/Abdominal Exam GI & Abdominal Exam: Soft. absent: Distended, Tenderness - Extremities Exam Extremities exam: Additional comments: right foot ulcer : clean without drainage, erythema - Back Exam Back exam: NORMAL INSPECTION - Neurological Exam Neurological exam: Alert - Psychiatric Exam Psychiatric exam: Normal Mood - Skin Skin Exam: Normal Color Assessment and Plan - Assessment and Plan (Free Text) Assessment: 77 M with PMH that includes DM2 and PAD presents with non-healing right foot ulcer that requires for RLE bypass Plan: plan for OR for RLE bypass on 01/[address] Teixeira vein mapping done on 01/09/18 - GSV normal above knee (3-5 mm) and below knee (3- 4 mm) Cardiology consult, Dr. Ray, help appreciated - Stress test today NPO past MN pending medical clearance for OR cont Plavix Case was reviewed and discussed with Dr. Puneet Wooten PGY1
[2018-01-14] MEDS ORDERED: Aminophylline 25 mg/ml Inj ONE (11:06)
--- NOTE | 2018-01-14 12:17 | PN ---
DATE: 01/14/2018 REASON FOR THE CONSULTATION AND FOLLOWUP: Preop evaluation, risk stratification, possible right popliteal bypass. SUBJECTIVE: The patient denies any chest pain, shortness of breath, any palpitation. OBJECTIVE: GENERAL: Not in any apparent distress. VITAL SIGNS: As follows: Temperature afebrile, heart rate 58, blood pressure 130/65. HEENT: PERRLA, intact. NECK: Supple. No carotid bruit. No thyromegaly. CHEST: Clear to auscultation. HEART: S1 and S2 regular. ABDOMEN: Soft. EXTREMITIES: Clubbing and cyanosis negative. LABORATORY DATA: Blood workup as follows: WBC 7, hemoglobin 11, hematocrit 33.7, platelet count 258. Chemistry shows sodium 144, potassium , chloride 107, carbon dioxide 27, anion gap of 15, BUN 32, creatinine 0.9. Triglyceride 95, cholesterol 107, LDL 42, HDL 42, TSH 2.34. EKG yesterday showed normal sinus rhythm. No acute ST changes. This is an essentially normal EKG. Further recommendation will be made after this test. IMPRESSION: This is a 77-year-old male with past medical history of diabetes, 15 to 20 years of peripheral arterial disease, has a nonhealing ulcer in the fibula since 07/2017, had recently peripheral angiogram done, found to have bilateral trifurcation disease in the anterior tibial artery and had angioplasty of right superficial femoral artery and tibiopoplitial done by Dr. Calzada in 09/2017. Now, the patient is for possible femoral popliteal bypass. History of diabetes, hypertension, hyperlipidemia. For preoperative evaluation and risk stratification, Cardiology consult is called. The patient denies any chest pain. No evidence of arrhythmia. No evidence of angina or congestive heart failure. The patient is scheduled for a stress test today and vein mapping and possible operating room tomorrow depending upon stress test today. The patient had echocardiography done on 10/21/2017 at [facility] that shows ejection fraction 75%. Mild mitral regurgitation. No significant aortic regurgitation or aortic stenosis noted. We will follow with you. Thank you, Dr. Norris for providing us the opportunity in taking care of Ozzie Robert. Dane Ray MD
--- NOTE | 2018-01-14 14:16 | CP.PCM.CON ---
History of Present Illness - History of Present Illness History of Present Illness: Podiatry Consult Note for Attending Dr. Harvey/Brittani 77M PMH including DM, HTN, and PVD seen at bedside with attending Dr. Harvey for chronic, non-healing right foot ulceration. Patient states that the wound has been present for around six months and that he was previously being treated at [facility] for it after he sustained it from dressings used to treat a closed reduced fibular fracture. While at [facility] pt found to have BL tibial vascular disease worse on the right, with an angiocatherization and angioplasty of the right HISTORIC INTERPRETER and tibioperoneal trunk by Dr. Calzada in September 2017. Wound has not healed and patient came to [facility] for same day angiocatheterization with Dr. Rios. Angiocath revealed Severe bilateral trifurcation, tibial, and pedal occlusive disease. Right posterior tibial artery occlusion was non- transversible in an antegrade or retrograde direction He states that it is mildly painful and denies any recent drainage from it. Patient is AAO x 3 and NAD at time of visit. Denies any further pedal complaints. Denies any recent N/V /F/C/CP/SOB/D/posterior calf pain when squeezed. PMH: DM, HTN, and PVD with chronic right foot ulcer, osteomyelitis, nephrolithiasis, glaucoma PSH: BL inguinal hernia repairs, angioplasty right lower extremity, lithotripsy ALL: NKDA Social: 1PPD for 12 years, quit 2017. Heavy drinking history quit 18 years ago, denies illicit substances Review of Systems - Constitutional Constitutional: As Per HPI Past Patient History - Past Medical History & Family History Past Medical History?: Yes - Past Social History Smoking Status: Former Smoker Alcohol: None Drugs: Denies - CARDIAC Hx Cardiac Disorders: No Hx Pacemaker: No - PULMONARY Hx Respiratory Disorders: No - NEUROLOGICAL Hx Neurological Disorder: No Hx Paralysis: No - HEENT Hx HEENT Problems: No - RENAL Hx Kidney Stones: Yes - ENDOCRINE/METABOLIC Hx Endocrine Disorders: Yes Hx Diabetes Mellitus Type 2: Yes - HEMATOLOGICAL/ONCOLOGICAL Hx Blood Disorders: No Hx Blood Transfusions: No - INTEGUMENTARY Hx Dermatological Problems: Yes Other/Comment: Right distula fibula ulcer - MUSCULOSKELETAL/RHEUMATOLOGICAL Hx Musculoskeletal Disorders: Yes - GASTROINTESTINAL Hx Gastrointestinal Disorders: No - GENITOURINARY/GYNECOLOGICAL Hx Genitourinary Disorders: No - PSYCHIATRIC Hx Emotional Abuse: No Hx Physical Abuse: No Hx Substance Use: No - SURGICAL HISTORY Hx Surgeries: Yes Hx Angiogram: Yes Hx Angioplasty: Yes Hx Herniorrhaphy: Yes Other/Comment: kidney stones - ANESTHESIA Hx Anesthesia Reactions: No Hx Malignant Hyperthermia: No Meds Allergies/Adverse Reactions: Allergies Allergy/AdvReac Type Severity Reaction Status Date / Time No Known Allergies Allergy Verified 01/13/18 16:46 - Medications Medications: Current Medications Amlodipine Besylate (Norvasc) 5 mg PO DAILY [facility] Arformoterol Tartrate (Brovana) 15 mcg IH [id number] [facility] Atorvastatin Calcium (Lipitor) 20 mg PO DAILY [facility] Budesonide (Pulmicort Respules) 0.5 mg IH [id number] [facility] Clopidogrel Bisulfate (Plavix) 75 mg PO DAILY [facility] Famotidine (Pepcid) 40 mg PO HS [facility] Last Admin: 01/13/18 21:45 Dose: 40 mg Insulin Human Regular (Humulin R Low) 0 units SC ACHS [facility] PRN Reason: Protocol Last Admin: 01/14/18 07:30 Dose: Not Given Metformin HCl (Glucophage Xr) 1,000 mg PO BID [facility] Last Admin: 01/13/18 18:18 Dose: 1,000 mg Morphine Sulfate (Morphine) 2 mg IVP Q4H PRN PRN Reason: Pain, moderate (4-7) Pioglitazone HCl (Actos) 15 mg PO DAILY [facility] Tamsulosin HCl (Flomax) 0.4 mg PO DAILY [facility] Physical Exam - Constitutional Appears: Well, Non-toxic, No Acute Distress - Extremities Exam Additional comments: LE focused exam: Vasc: DP/PT pulses severely diminished b/l. CFT < 3 seconds to all digits. Skin temperature warm to warm from proximal to distal WNL. No edema noted b/l Neuro: Epicritic and protective sensation grossly intact b/l Derm: 2 cm x 3 cm x 0.2 cm ulceration noted to dorsolateral right foot with almost 100% fibrous base. No malodor, no drainage, no periwound erythema, no tracking, tunneling, undermining or probe to bone. No other clinical signs of infection. Otherwise, no open lesions, wounds, maceration, xerosis, abnormal pigmentation or abnormal growths noted b/l MSK: POP to ulceration site. No other gross deformities noted - Psychiatric Exam Psychiatric exam: Normal Affect, Normal Mood Results - Vital Signs Recent Vital Signs: Last Vital Signs Temp 97.5 F L 01/14/18 08:58 Pulse 62 01/14/18 08:58 Resp 18 01/14/18 08:58 BP 149/84 01/14/18 08:58 Pulse Ox 98 01/14/18 08:58 - Labs Result Diagrams: 01/14/18 06:00 01/14/18 06:00 Labs: Laboratory Results - last 24 hr 01/13/18 01/13/18 01/14/18 17:18 21:40 06:00 WBC 7.0 RBC 3.65 Hgb 11.0 L Hct 33.7 L MCV 92.3 MCH 30.1 MCHC 32.6 RDW 13.8 Plt Count 258 MPV 9.7 Gran % 62.7 Lymph % (Auto) 25.8 [place] % (Auto) 9.7 H Eos % (Auto) 1.7 Baso % (Auto) 0.1 Gran # 4.38 Lymph # (Auto) 1.8 [place] # (Auto) 0.7 H Eos # (Auto) 0.1 Baso # (Auto) 0.01 ESR Sodium Potassium Chloride Carbon Dioxide Anion Gap BUN Creatinine Est GFR ( Amer) Est GFR (Non-Af Amer) POC Glucose (mg/dL) 113 H 114 H Random Glucose Calcium Phosphorus Magnesium Total Bilirubin AST ALT Alkaline Phosphatase Total Protein Albumin Globulin Albumin/Globulin Ratio Triglycerides Cholesterol LDL Cholesterol Direct HDL Cholesterol TSH 3rd Generation 01/14/18 01/14/18 01/14/18 06:00 06:00 07:51 WBC RBC Hgb Hct MCV MCH MCHC RDW Plt Count MPV Gran % Lymph % (Auto) [place] % (Auto) Eos % (Auto) Baso % (Auto) Gran # Lymph # (Auto) [place] # (Auto) Eos # (Auto) Baso # (Auto) ESR Sodium 144 Potassium 4.7 Chloride 107 Carbon Dioxide 27 Anion Gap 15 BUN 22 H Creatinine 0.9 Est GFR ( Amer) > 60 Est GFR (Non-Af Amer) > 60 POC Glucose (mg/dL) 83 Random Glucose 97 Calcium 9.2 Phosphorus 3.7 Magnesium 1.7 Total Bilirubin 0.3 AST 22 ALT 28 Alkaline Phosphatase 50 Total Protein 6.9 Albumin 4.0 Globulin 3.0 Albumin/Globulin Ratio 1.3 Triglycerides 95 Cholesterol 107 L LDL Cholesterol Direct 42 HDL Cholesterol 42 TSH 3rd Generation 2.34 01/14/18 09:00 WBC RBC Hgb Hct MCV MCH MCHC RDW Plt Count MPV Gran % Lymph % (Auto) [place] % (Auto) Eos % (Auto) Baso % (Auto) Gran # Lymph # (Auto) [place] # (Auto) Eos # (Auto) Baso # (Auto) ESR 28 H Sodium Potassium Chloride Carbon Dioxide Anion Gap BUN Creatinine Est GFR ( Amer) Est GFR (Non-Af Amer) POC Glucose (mg/dL) Random Glucose Calcium Phosphorus Magnesium Total Bilirubin AST ALT Alkaline Phosphatase Total Protein Albumin Globulin Albumin/Globulin Ratio Triglycerides Cholesterol LDL Cholesterol Direct HDL Cholesterol TSH 3rd Generation Assessment & Plan - Assessment and Plan (Free Text) Assessment: 77M seen at bedside for non-healing, chronic dorsal right foot ulceration Plan: Patient seen and evaluated with attending Dr. Harvey Afebrile, absent leukocytosis, ESR elevated at 28 RLE arterial US: B/l popliteal, trifurcation and/or tibial disease R foot XR: No evidence of OM Patient going for cardiac testing prior to vascular intervention Podiatry will plan possible wound debridement with graft application following vascular intervention Wound cleaned with saline and dressed with optifoam Bactroban ordered Thank you for the podiatry consult and allowing to take part in patient care Podiatry will follow up while patient in house - Date & Time Date: 01/14/18 Time: 14:21
[2018-01-14] MEDS: Morphine 2 mg/ml ISec IVP PRN (15:39)
[2018-01-14] MEDS: Budesonide 0.5 mg/2 ml Inhal Susp UD IH SCH (19:51)
[2018-01-14] MEDS: Arformoterol 15 mcg/2 ml Inh Sol IH SCH (19:51)
--- NOTE | 2018-01-14 21:03 | CARD ---
APPROVED REPORT Protocol: LEXISCAN Test Type: Lexiscan Sestamibi Stress Test Attending Physician: Dr. Dane Johnson Referring Physician: Dr. Vivian Norris Test Indications: Pre-Op Evaluation Height:5 ft 6 in Weight:180lbs Medications: Norvasc,Lipitor,Plavix,Pepcid, Metformin,Actos, Flomax Medical History: 77 y/o male. Hx of PVD, diabetic. Target HR: 141 bpm Resting ECG: RSR Resting Heart Rate: 53 bpm Resting Blood Pressure: 162/80mmHg Submaximum (85%): 120 bpm PROCEDURE Pharmacologic stress testing was performed using 0.4mg per 5ml of regadenoson given intravenously over 7-10 seconds. POST EXERCISE Reason for Termination: Protocol completed Target HR: No Max HR: 54 bpm 58% of Maximum Predicted HR: 141 bpm Exercise duration: 00:30 min:sec, 0 Stage Exercise capacity: 1.0METs Max Blood Pressure: 162/80mmHg Blood Pressure response to exercise: normal resting BP - appropriate response Heart Rate response to exercise: appropriate Chest Pain: No, none Angina index: 0 Arrhythmia: No, none ST Change: No, none Deviation: 0 mm INTERPRETATION Stress EKG Conclusion: IV LEXISCAN NUCLEAR STRESS TEST NEGATIVE FOR CHEST PAIN AND NEGATIVE FOR ST=T CHANGES. NUCLEAR SCAN REPORT PENDING. Signed by Dane Johnson Electronically Approved: 01/14/2018 13:42:09 EXAM: Myocardial Perfusion REST/STRESS Stress Test Type: Pharmacologic Imaging Protocol Rest Spect myocardial perfusion imaging was performed in supine position 50 minutes following the injection of 10.2 mCi of Tc-99 Myoview. At peak stress, the patient was injected intravenously with 30.9mCi of Tc-99 tetrofosmin after an infusion time of 0 minutes and 10 seconds. Gated Stress Spect was performed 60 minutes after intravenous Tc-99 Myoview injection. The images were gated to evaluate regional wall motion and calculate ventricular ejection fraction.Images were reconstructed using backfilter projection method in short horizontal and verticle long axis. Spect slices were generated. LV Perfusion The quality of the study is good. The left ventricle is mildly enlarged in size. The right ventricle is unremarkable. The lung uptake is normal. The distribution of tracer reveals an area of moderately to severely decreased perfusion in the apical wall and mildly decreased perfusion in the inferior carmona on the stress study. The remainder of the LV myocardium is unremarkable. The rest myocardial perfusion study shows no significant change. Wall Motion Wall motion study shows normal contractilty of the left ventricle. LVEF = 60%. Conclusion 1. Probably abnormal SPECT myocardial perfusion study. 2. Fixed, apical defect is suggestive of prevous myocardial injury/ infarct. 3. Fixed, inferior defects are most likely due to diaphrgmatic attenuation. 4. Normal gated wall motion of the left ventricle.
--- NOTE | 2018-01-15 00:08 | CON ---
DATE: 01/14/2018 PULMONARY CONSULT REFERRING PHYSICIAN: Dr. Norris. REASON FOR CONSULT: Cough, shortness of breath, may have sleep apnea syndrome. HISTORY OF PRESENT ILLNESS: This is a 77-year-old gentleman with past medical history significant for insulin-dependent diabetes, peripheral vascular disease, history of nephrolithiasis, inguinal hernia being repaired in the past, history of coronary artery disease with angioplasty, apparently had a fall, originally injuring his right leg with a fracture which has been repaired, has been having nonhealing ulcer on the foot, at one point has osteomyelitis, found to have severe vascular disease, seen by Vascular Surgery as well as Interventional Radiology. angioplasty approach was done, now readmitted with nonhealing ulcers, also has some cough and shortness of breath. Admit to loud snoring, daytime sleepy and tired. PAST MEDICAL HISTORY: As per history of present illness. ALLERGIES: NONE KNOWN. SOCIAL HISTORY: Has a history of one-pack smoking, stopped a few years ago, history of alcohol abuse in the past, stopped previously. MEDICATIONS: He is on Actos 15 mg daily, Flomax 0.4 mg daily, metformin 1000 mg twice a day, insulin coverage, atorvastatin 20 mg daily, Norvasc 5 mg daily, Pepcid 40 mg daily, Plavix 75 mg daily. REVIEW OF SYSTEMS: No headache. No rhinitis. Has some cough, wheezing, short of breath with exertion. No chest pain, no nausea, no vomiting, no diarrhea. No leg swelling. Has a right foot nonhealing ulcer. PHYSICAL EXAMINATION: GENERAL: No acute distress. VITAL SIGNS: Temperature is 98, heart rate is 62, respiratory rate is 18, blood pressure 149/84, pulse of 98% on room air. HEENT: Moist mucous membrane. Crowded airway. Mallampati score is 4. NECK: Supple. No JVD. LUNGS: Has scattered rhonchi. wheezing. HEART: S1 and S2. ABDOMEN: Soft, nontender. No organomegaly. EXTREMITIES: There is no edema. Right foot has a dressing. NEUROLOGIC: Awake, alert, follows simple commands. LABORATORY DATA: Shows hemoglobin 11, hematocrit 33.7, WBC 7, platelet count is 258. Sed rate is 28, INR 0.92. PTT 32. VBG shows pH 7.29, pCO2 is 52, O2 is 56. Sodium 144, potassium 4.7, chloride 107, bicarbonate 27, BUN 22, creatinine 0.9, glucose 83, calcium 9.2, phosphorus 3.7, magnesium 1.7, AST 22, ALT 28, alk phos is 50. Albumin is 4, triglyceride is 95, cholesterol is 107. TSH is 2.34. Microbiology: Blood culture, urine culture, there is no growth. Chest x-ray done in ER yesterday which shows no active pulmonary disease. IMPRESSION AND PLAN: May have a chronic obstructive lung disease with sleep apnea syndrome, peripheral vascular disease, nonhealing right foot ulcer, history of osteomyelitis, anemia, diabetes, hyperlipidemia, hypertension. Pulmonary point of view, he is doing okay. We will add inhaled bronchodilator. High risk for sleep apnea syndrome. Chest x-ray is okay. If sedating, needs close cardiopulmonary monitoring especially while sedated. If any respiratory distress, may start BiPAP 12/8 with 35% oxygen. We will suggest PFT and attend a sleep study upon discharge as outpatient after peripheral vascular disease workup. Thank you and we will follow with you. Dane Muñoz MD
--- NOTE | 2018-01-15 03:42 | PN ---
DATE: 01/14/2018 SUBJECTIVE: The patient is a 77-year-old male. Patient was seen and examined at the bedside on 01/14/2018. Looking comfortable, was hungry in the morning because of n.p.o. after midnight for stress test. Patient had vein mapping done, which showed normal, above and below the knee. No fever. No chills. No headaches. No dizziness. Patient is a very poor historian. PHYSICAL EXAMINATION: VITAL SIGNS: Temperature 97.5, pulse 62, respiratory rate 18, blood pressure 114/64, pulse oximetry 98%. HEENT: Head normocephalic, atraumatic. Eyes: PERRLA. Extraocular muscles intact. Conjunctivae clear. Nose patent. Mucous membrane moist. NECK: Supple. No carotid bruit. No JVD or thyromegaly. CHEST: Bilaterally symmetrical. HEART: S1 and S2 positive. LUNGS: Clear to auscultation. ABDOMEN: Soft. Bowel sounds positive. No organomegaly. EXTREMITIES: No edema. No cyanosis. NEUROLOGIC: Patient is awake, alert. Moving all four extremities. No focal deficits. MEDICATIONS: Amlodipine, Lipitor, Plavix, Pepcid, insulin, metformin, Actos, Flomax. LABORATORY DATA: White blood cells 7, hemoglobin 11, hematocrit 33.7, platelets 250. Sodium 144, potassium 4.7, BUN 22, creatinine 0.9. Glucose 97. ASSESSMENT AND PLAN: Mr. Ozzie Jones is a 77-year-old male with anemia, with past medical history of diabetes mellitus type 2, peripheral arterial disease, presented with nonhealing right foot ulcers that requires right lower extremity bypass. Plan for operating room for right lower extremity bypass on , 01/15/[address] Teixeira. As per Dr. Teixeira, vein mapping done. Greater saphenous vein normal above knee and below knee. Cardiology Dr. Ray saw the patient. Stress test done, is to be n.p.o. after midnight for surgery. Continue Plavix treatment. Appreciated Dr. Teixeira's input. Reviewed normal single photon emission computed tomography myocardial perfusion study by the nip wrapper. fact suggestive of previous myocardial injury or infarction presented in the past are mostly due to the gated wall motion of the left ventricle. Waiting for nip wrapper clearance. Seen by Dr. Rodas, Infectious Disease doctor. Patient had history of insulin-dependent diabetes mellitus, has closed reduction of the fracture. Developed a wound on to the right dorsolateral foot and he has had multiple debridement by the computer equipment installer, was diagnosed with osteomyelitis and vascular disease, had catheterization, angioplasty of the right femoral artery and tibioperoneal trunk by Dr. Calzada. Dr. Rodas recommending deep tissue biopsy and biopsy should be sent for Gram stain and routine cultures in addition to acid-fast bacillus stain and acid-fast bacillus cultures and fungal stains and fungal cultures and should be sent to the pathology. 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 Should have an MRI to rule out underlying osteomyelitis, a sedimentation rate, C-reactive protein and special stains and deep vein cultures as stated for routine Gram-stain cultures. We will hold off antibiotics as per computer equipment installer. Gastrointestinal and deep venous thrombosis prophylaxis. Repeat labs. We will follow up. Vivian Norris MD MTDD
[2018-01-15 06:31] LABS: BASO # 0.01 K/mm3 (0.0-2.0); BASO % 0.2 % (0.0-3.0); EOS # 0.1 (0.0-0.7); EOS % 1.6 % (1.5-5.0); GRAN # 4.17 (1.4-6.5); GRAN % 65.8 % (50.0-68.0); HEMOGLOBIN 11.4 g/dL (14.0-18.0); LYMPH # 1.6 (1.2-3.4); LYMPH % 25.3 % (22.0-35.0); MEAN CELL VOLUME 92.2 fl (80.0-105.0); MEAN CORPUSCULAR HEMOGLOBIN 30.7 pg (25.0-35.0); MEAN CORPUSCULAR HGB CONC 33.3 g/dl (31.0-37.0); MEAN PLATELET VOLUME 9.9 fl (7.0-11.0); MONO # 0.5 (0.1-0.6); MONO % 7.1 % (1.0-6.0); RBC 3.71 10^6/uL (3.5-6.1); RED CELL DISTRIBUTION WIDTH 13.6 % (11.5-14.5); WHITE BLOOD COUNT 6.3 10^3/ul (4.5-11.0)
[2018-01-15 06:56] LABS: ALB/GLOB RATIO 1.4 (1.1-1.8); ALBUMIN 4.1 g/dL (3.0-4.8); ALT/SGPT 25 U/L (7-56); AST/SGOT 20 U/L (17-59); BLOOD UREA NITROGEN 22 mg/dL (7-21); CALCIUM 9.2 mg/dL (8.4-10.5); GFR AFRICAN-AMERICAN > 60; GFR NON-AFRICAN AMERICAN > 60
[2018-01-15 06:57] LABS: INR 0.98 (0.93-1.08); PARTIAL THROMBOPLASTIN TIME 29.7 Seconds (25.1-36.5); PROTHROMBIN TIME 11.3 SECONDS (9.4-12.5)
--- NOTE | 2018-01-15 07:16 | CP.PCM.PN ---
Subjective - Date & Time of Evaluation Date of Evaluation: 01/15/18 Time of Evaluation: 06:35 - Subjective Subjective: Awake,sitting side of bed, no distress,denies chest pain ,denies shortness of breath Reason for consultation and follow up: Cardiac evaluation and risk stratification for possible right femoral popliteal bypass, history of insulin dependent diabetes mellitus, peripheral vascular disease with right foot chronic ulcer. history of 1 PPD smoking x 12 years. Seen and examined by me and Dr. Ray Objective - Vital Signs/Intake and Output Vital Signs (last 24 hours): Temp Pulse Resp BP Pulse Ox 98.2 F 65 18 156/69 H 99 01/14/18 18:00 01/14/18 19:50 01/14/18 18:00 01/14/18 18:00 01/14/18 18:00 Intake and Output: 01/15/18 01/15/18 06:59 18:59 Intake Total 840 0 Output Total 1300 1000 Balance -460 -1000 - Medications Medications: Current Medications Amlodipine Besylate (Norvasc) 5 mg PO DAILY [facility] Last Admin: 01/14/18 15:34 Dose: 5 mg Arformoterol Tartrate (Brovana) 15 mcg IH [id number] [facility] Last Admin: 01/14/18 19:51 Dose: 15 mcg Atorvastatin Calcium (Lipitor) 20 mg PO DAILY [facility] Last Admin: 01/14/18 15:33 Dose: 20 mg Budesonide (Pulmicort Respules) 0.5 mg IH [id number] [facility] Last Admin: 01/14/18 19:51 Dose: 0.5 mg Clopidogrel Bisulfate (Plavix) 75 mg PO DAILY [facility] Famotidine (Pepcid) 40 mg PO HS [facility] Last Admin: 01/14/18 22:29 Dose: 40 mg Insulin Human Regular (Humulin R Low) 0 units SC ACHS [facility] PRN Reason: Protocol Last Admin: 01/14/18 22:41 Dose: Not Given Metformin HCl (Glucophage Xr) 1,000 mg PO BID [facility] Last Admin: 01/14/18 18:48 Dose: 1,000 mg Morphine Sulfate (Morphine) 2 mg IVP Q4H PRN PRN Reason: Pain, moderate (4-7) Last Admin: 01/14/18 15:39 Dose: 2 mg Pioglitazone HCl (Actos) 15 mg PO DAILY [facility] Last Admin: 01/14/18 15:30 Dose: 15 mg Tamsulosin HCl (Flomax) 0.4 mg PO DAILY [facility] Last Admin: 01/14/18 15:37 Dose: 0.4 mg - Labs Labs: 01/15/18 06:00 01/15/18 06:00 PT 11.3 SECONDS (9.4-12.5) 01/15/18 06:00 INR 0.98 (0.93-1.08) 01/15/18 06:00 APTT 29.7 Seconds (25.1-36.5) 01/15/18 06:00 - Constitutional Appears: No Acute Distress - Head Exam Head Exam: NORMOCEPHALIC - Eye Exam Eye Exam: Normal appearance - ENT Exam ENT Exam: Mucous Membranes Moist - Cardiovascular Exam Cardiovascular Exam: REGULAR RHYTHM, +S1, +S2 - GI/Abdominal Exam GI & Abdominal Exam: Soft, Normal Bowel Sounds - Extremities Exam Additional comments: right foot ulcer - Neurological Exam Neurological Exam: Alert, Awake, Oriented x3 - Psychiatric Exam Psychiatric exam: Normal Affect, Normal Mood - Skin Skin Exam: Normal Color, Warm Assessment and Plan - Assessment and Plan (Free Text) Assessment: A 77 year old male, who came in to [facility] [place] [facility] for vascular angiocatheterization with Dr. Rios. Angiogram showed Severe bilateral trifurcation, tibial, and pedal occlusive disease. Right posterior tibial artery occlusion was non-transversible in an antegrade or retrograde direction. History of fall in July 2017 and sustained a fracture of his distal fibula.A closed reduction of the fracture was done in [facility] and developed the wound on his right dorsal lateral foot from the dressings. Multiple wound debridement by podiatry and diagnosed with osteomyelitis, and was found to have bilateral tibial vascular disease worse on the right. History of insulin dependent diabetes mellitus,hypertension, nephrolithiasis, glaucoma,bilateral inguinal hernia repairs, angioplasty right lower extremity, lithotripsy,smoking 1PPD for 12 years, quit 2017. history of heavy drinking history quit 18 years ago. For possible femoral popliteal bypass, cardiac consult for cardiac clearance for surgery Plan: Stress test done yesterday-fixed apical defect suggestive of previous myocardial injury EKG normal sinus rhythm Denies chest pain No evidence of arrythmia or congestive heart failure Moderate risk, Cleared for vascular surgery Glucose control Continue current medications Continue current treatment Will follow up Plan and treatment discussed with Dr. Ray
[2018-01-15] MEDS: Arformoterol 15 mcg/2 ml Inh Sol IH SCH ×2 (07:18→19:59)
[2018-01-15] MEDS: Budesonide 0.5 mg/2 ml Inhal Susp UD IH SCH ×2 (07:18→19:59)
[2018-01-15] MEDS ORDERED: Vancomycin 1 g Inj ONE (08:30)
[2018-01-15] MEDS ORDERED: Heparin 10,000 Units/ml ONE (08:30)
[2018-01-15] MEDS ORDERED: Iohexol 240 (50 ml) ONE ×2 (08:31→15:06)
[2018-01-15] MEDS ORDERED: Bupivacaine 0.5% Inj(30mL) ONE (08:31)
[2018-01-15] MEDS ORDERED: Thrombin Topical 20,000 Intl Units Spray Kit TOP ONE (08:31)
[2018-01-15] MEDS ORDERED: Lidocaine 1% Inj (20ml) ONE (08:31)
[2018-01-15] MEDS ORDERED: Absorbable Gelatin Sponge Size 100 ONE (08:31)
[2018-01-15] MEDS: Insulin Reg-LOW-Coverage SC SCH ×3 (08:41→16:30)
[2018-01-15] MEDS ORDERED: Sevoflurane - Inhalation Anesthetic Liq (250 ml) ONE (08:51)
[2018-01-15] MEDS ORDERED: Midazolam 2 MG/2 ML VIAL ONE (09:36)
[2018-01-15] MEDS ORDERED: Rocuronium 10 mg/ml (5 ml) ONE ×2 (09:37→10:34)
[2018-01-15] MEDS ORDERED: Succinylcholine 200 mg/10 ml Inj IV ONE (09:37)
[2018-01-15] MEDS ORDERED: Etomidate 20 mg/10ml Inj IV ONE (09:38)
[2018-01-15] MEDS ORDERED: ePHEDrine 50 mg/ml Inj ONE (10:02)
[2018-01-15] MEDS ORDERED: Phenylephrine 10 mg/ml Inj ONE (10:04)
[2018-01-15] MEDS ORDERED: Esmolol 100 mg/10ml Inj IV ONE (10:28)
[2018-01-15] MEDS ORDERED: Neostigmine Methylsulfate 3mg/3ml Syringe IV ONE (15:37)
[2018-01-15] MEDS ORDERED: HYDROmorphone 0.5 mg/0.5 ml ISec IVP PRN (16:04)
--- NOTE | 2018-01-15 16:13 | PCM.SURG1 ---
Surgeon's Initial Post Op Note - Surgeon's Notes Surgeon: Dr. Teixeira Slitting Machine Operator: Sugar PGY1 Type of Anesthesia: General Endo Anesthesia Administered By: Dr. Rader Pre-Operative Diagnosis: Peripheral artery disease, Severe right trifurication disease Operative Findings: Peripheral artery disease, Severe right trifurication disease Post-Operative Diagnosis: Peripheral artery disease, Severe right trifurication disease Operation Performed: Right Great saphenous vein harvest, Right popliteal to dorsalis pedis bypass with Great saphenous vein graft Specimen/Specimens Removed: N/A Estimated Blood Loss: EBL {In ML}: 200 Blood Products Given: PRBC (1 unit) Drains Used: No Drains Post-Op Condition: Good Date of Surgery/Procedure: 01/15/18 Time of Surgery/Procedure: 16:13
[2018-01-15] MEDS ORDERED: Lactated Ringer's 1,000 ML IV SCH ×2 (16:15)
[2018-01-15] MEDS ORDERED: HYDROmorphone 0.5 mg/0.5 ml ISec ONE ×3 (16:23→17:06)
[2018-01-15] MEDS ORDERED: HYDROmorphone 0.5 mg/0.5 ml ISec IVP ONE ×2 (16:24→16:42)
--- NOTE | 2018-01-15 16:47 | CP.PCM.CON ---
<Tamiko Ireland - Last Filed: 01/15/18 17:35> History of Present Illness - History of Present Illness History of Present Illness: PGY-[address] Torrez ICU consult: Severe PAD s/p Right Great saphenous vein harvest, Right popliteal to dorsalis pedis bypass with Great saphenous vein graft Mr Lucia, 77M with PMH including DM2 (insulin dependent), HTN, and PVD with chronic, non-healing right foot ulcer. Since July 2017, the patient fell and sustained a __R__ distal fibula fracture. He had a closed reduction of the fracture ([facility]) and developed the wound on his right dorsal lateral foot from the dressings. 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 He underwent angioplasty of the right common femoral artery ([facility] [employer]) and tibioperoneal trunk by Dr. Calzada in September 2017. Since Wound has not healed despite the revascularization in September 2017, patient came to [facility] on 01/13 for same day angiocatheterization with Dr. Rios. Angiocath revealed Severe bilateral trifurcation, tibial, and pedal occlusive disease. Right posterior tibial artery occlusion was non-transversible in an antegrade or retrograde direction. Pt was admitted for R popliteal dorsalis pedis bypass due to PAD with severe trifurcation disease. Today, pt underwent Right Great saphenous vein harvest, Right popliteal to dorsalis pedis bypass with Great saphenous vein graft. Pt was admitted to ICU for post-op obs. 200cc blood loss and pt was transfused 1 u pRBC. ROS (+) severe pain in the right foot prior to procedure, (+) non-healing ulcer , (+) ambulating with a cane. Denies any fevers, chills, CP, SOB, or foul smelling discharge from the wound PMH: HTN IDDM PVD with chronic right foot ulcer, (R foot x-ray 12/2017 neg for osteomelytitis) nephrolithiasis glaucoma PSH: BL inguinal hernia repairs, angioplasty right lower extremity, lithotripsy Social: 1PPD for 12 years, quit 2017. Heavy drinking history quit 18 years ago, denies illicit substances ALL: NKDA Med: Norvasc 5 Brovana Q12, budesonide 0.5 Q12 Lipitor 20 Plavix - HOLD Pepcid 40 HS Dilaudid PRN; morphine PRN; Zofran PRN ISSS LR @ 175 Flomax 0.4 PMD: iK Jacob @ [facility] Podiatry: Marco Antonio Meadows Past Patient History - Past Medical History & Family History Past Medical History?: Yes - Past Social History Smoking Status: Former Smoker Alcohol: None Drugs: Denies - CARDIAC Hx Cardiac Disorders: No Hx Pacemaker: No - PULMONARY Hx Respiratory Disorders: No - NEUROLOGICAL Hx Neurological Disorder: No Hx Paralysis: No - HEENT Hx HEENT Problems: No - RENAL Hx Kidney Stones: Yes - ENDOCRINE/METABOLIC Hx Endocrine Disorders: Yes Hx Diabetes Mellitus Type 2: Yes - HEMATOLOGICAL/ONCOLOGICAL Hx Blood Transfusions: No - INTEGUMENTARY Hx Dermatological Problems: Yes Other/Comment: Right distula fibula ulcer - MUSCULOSKELETAL/RHEUMATOLOGICAL Hx Musculoskeletal Disorders: Yes - GASTROINTESTINAL Hx Gastrointestinal Disorders: No - GENITOURINARY/GYNECOLOGICAL Hx Genitourinary Disorders: No - PSYCHIATRIC Hx Emotional Abuse: No Hx Physical Abuse: No Hx Substance Use: No - SURGICAL HISTORY Hx Surgeries: Yes - ANESTHESIA Hx Anesthesia Reactions: No Hx Malignant Hyperthermia: No Meds Allergies/Adverse Reactions: Allergies Allergy/AdvReac Type Severity Reaction Status Date / Time No Known Allergies Allergy Verified 01/13/18 16:46 - Medications Medications: Current Medications Amlodipine Besylate (Norvasc) 5 mg PO DAILY [facility] Last Admin: 01/15/18 09:11 Dose: Not Given Arformoterol Tartrate (Brovana) 15 mcg IH [id number] [facility] Last Admin: 01/15/18 07:18 Dose: 15 mcg Atorvastatin Calcium (Lipitor) 20 mg PO DAILY [facility] Last Admin: 01/15/18 09:10 Dose: Not Given Budesonide (Pulmicort Respules) 0.5 mg IH [id number] [facility] Last Admin: 01/15/18 07:18 Dose: 0.5 mg Clopidogrel Bisulfate (Plavix) 75 mg PO DAILY [facility] Famotidine (Pepcid) 40 mg PO HS [facility] Last Admin: 01/14/18 22:29 Dose: 40 mg Hydromorphone HCl (Dilaudid) 0.5 mg IVP Q15M PRN PRN Reason: Pain, moderate (4-7) Stop: 01/15/18 18:04 Lactated Ringer's (Lactated Ringer's) 1,000 mls @ 75 mls/hr IV .[id number] [facility] Stop: 01/15/18 18:16 Lactated Ringer's (Lactated Ringer's) 1,000 mls @ 100 mls/hr IV .Q10H [facility] Insulin Human Regular (Humulin R Low) 0 units SC ACHS [facility] PRN Reason: Protocol Last Admin: 01/15/18 12:02 Dose: Not Given Metformin HCl (Glucophage Xr) 1,000 mg PO BID [facility] Last Admin: 01/14/18 18:48 Dose: 1,000 mg Morphine Sulfate (Morphine) 2 mg IVP Q4H PRN PRN Reason: Pain, moderate (4-7) Last Admin: 01/14/18 15:39 Dose: 2 mg Ondansetron HCl (Zofran Inj) 4 mg IVP ONCE PRN PRN Reason: Nausea/Vomiting Ondansetron HCl (Zofran Inj) 4 mg IVP Q6H PRN PRN Reason: Nausea/Vomiting Pioglitazone HCl (Actos) 15 mg PO DAILY [facility] Last Admin: 01/14/18 15:30 Dose: 15 mg Tamsulosin HCl (Flomax) 0.4 mg PO DAILY [facility] Last Admin: 01/15/18 09:10 Dose: Not Given Physical Exam - Constitutional Appears: No Acute Distress - Head Exam Head Exam: ATRAUMATIC, NORMAL INSPECTION, NORMOCEPHALIC - Eye Exam Eye Exam: EOMI, Normal appearance, PERRL. absent: Scleral icterus Pupil Exam: NORMAL ACCOMODATION - ENT Exam ENT Exam: Mucous Membranes Moist - Neck Exam Additional comments: supple - Respiratory Exam Respiratory Exam: Clear to Auscultation Bilateral, NORMAL BREATHING PATTERN. absent: Rales, Rhonchi, Wheezes - Cardiovascular Exam Cardiovascular Exam: REGULAR RHYTHM, +S1, +S2, Systolic Murmur - GI/Abdominal Exam GI & Abdominal Exam: Normal Bowel Sounds, Soft. absent: Distended, Firm, Guarding, Rigid - Extremities Exam Extremities exam: Positive for: pedal pulses present. Negative for: calf tenderness, pedal edema Additional comments: dressings on saphenous vein and bypass area, clean, intact, no strike through - Back Exam Back exam: absent: CVA tenderness (L), CVA tenderness (R) - Neurological Exam Neurological exam: Oriented x3 Additional comments: drowsy from anesthesia - Psychiatric Exam Psychiatric exam: Normal Affect, Normal Mood - Skin Skin Exam: Dry, Warm Results - Vital Signs Recent Vital Signs: Last Vital Signs Temp 97.6 F 01/15/18 16:20 Pulse 82 01/15/18 16:20 Resp 18 01/15/18 16:20 BP 153/69 H 01/15/18 16:20 Pulse Ox 96 01/15/18 08:39 - Labs Result Diagrams: 01/15/18 06:00 01/15/18 06:00 Labs: Laboratory Results - last 24 hr 01/14/18 01/14/18 01/14/18 09:00 16:24 21:11 WBC RBC Hgb Hct MCV MCH MCHC RDW Plt Count MPV Gran % Lymph % (Auto) Posey % (Auto) Eos % (Auto) Baso % (Auto) Gran # Lymph # (Auto) Posey # (Auto) Eos # (Auto) Baso # (Auto) PT INR APTT Sodium Potassium Chloride Carbon Dioxide Anion Gap BUN Creatinine Est GFR ( Amer) Est GFR (Non-Af Amer) POC Glucose (mg/dL) 240 H 205 H Random Glucose Calcium Total Bilirubin AST ALT Alkaline Phosphatase C-Reactive Protein < 5.00 Total Protein Albumin Globulin Albumin/Globulin Ratio 01/15/18 01/15/18 01/15/18 06:00 06:00 06:00 WBC 6.3 RBC 3.71 Hgb 11.4 L Hct 34.2 L MCV 92.2 MCH 30.7 MCHC 33.3 RDW 13.6 Plt Count 259 MPV 9.9 Gran % 65.8 Lymph % (Auto) 25.3 Posey % (Auto) 7.1 H Eos % (Auto) 1.6 Baso % (Auto) 0.2 Gran # 4.17 Lymph # (Auto) 1.6 Posey # (Auto) 0.5 Eos # (Auto) 0.1 Baso # (Auto) 0.01 PT 11.3 INR 0.98 APTT 29.7 Sodium 144 Potassium 5.1 H Chloride 105 Carbon Dioxide 26 Anion Gap 18 BUN 22 H Creatinine 1.0 Est GFR ( Amer) > 60 Est GFR (Non-Af Amer) > 60 POC Glucose (mg/dL) Random Glucose 108 Calcium 9.2 Total Bilirubin 0.2 AST 20 ALT 25 Alkaline Phosphatase 54 C-Reactive Protein Total Protein 7.0 Albumin 4.1 Globulin 2.9 Albumin/Globulin Ratio 1.4 01/15/18 07:52 WBC RBC Hgb Hct MCV MCH MCHC RDW Plt Count MPV Gran % Lymph % (Auto) Posey % (Auto) Eos % (Auto) Baso % (Auto) Gran # Lymph # (Auto) Posey # (Auto) Eos # (Auto) Baso # (Auto) PT INR APTT Sodium Potassium Chloride Carbon Dioxide Anion Gap BUN Creatinine Est GFR ( Amer) Est GFR (Non-Af Amer) POC Glucose (mg/dL) 139 H Random Glucose Calcium Total Bilirubin AST ALT Alkaline Phosphatase C-Reactive Protein Total Protein Albumin Globulin Albumin/Globulin Ratio Assessment & Plan - Assessment and Plan (Free Text) Plan: PGY-[address] Torrez ICU consult: Severe PAD s/p Right Great saphenous vein harvest, Right popliteal to dorsalis pedis bypass with Great saphenous vein graft Mr Lucia, 77M with PMH including DM2 (insulin dependent), HTN, and PVD with chronic, non-healing right foot ulcer is now status post Right Great saphenous vein harvest, Right popliteal to dorsalis pedis bypass with Great saphenous vein graft. POD #___0____. Pt was admitted to ICU for post-op obs. 200cc blood loss and pt was transfused 1 u pRBC. A: Severe PAD s/p Right popliteal to dorsalis pedis bypass with Great saphenous vein graft HTN IDDM Questionable COPD with MALLORY Neuro - Dilaudid PRN; morphine PRN; Pulm - Brovana Q12, budesonide 0.5 Q12; bipap 12/8 35% PRN for possible MALLORY Card - Norvasc 5, lipitor 20, plavix-ON HOLD LR @ 175 LE pulse check q1 until am stay in bed, leg straight 24 hours patient will remain on bedrest until clearance by surgery GI - Pepcid 40 HS; Zofran PRN - flomax, strict i/o, replete electrolyte PRN Endo - ISSS, accucheck, goal blood glucose 140-180 Heme - s/p 1u PRBC, trend H/H ID - Observe off antibiotics. Blood culture neg x 2d. Urine Culture neg. R foot x-ray 12/2017 neg for osteomelytitis Prophylaxis - Pepcid. Heparin sc on hold for post-op bleeding risk s/r/d/w Dr. Torrez <Christopher Torrez - Last Filed: 01/15/18 17:41> Meds - Medications Medications: Current Medications Amlodipine Besylate (Norvasc) 5 mg PO DAILY [facility] Last Admin: 01/15/18 09:11 Dose: Not Given Arformoterol Tartrate (Brovana) 15 mcg IH [id number] [facility] Last Admin: 01/15/18 07:18 Dose: 15 mcg Atorvastatin Calcium (Lipitor) 20 mg PO DAILY [facility] Last Admin: 01/15/18 09:10 Dose: Not Given Budesonide (Pulmicort Respules) 0.5 mg IH [id number] [facility] Last Admin: 01/15/18 07:18 Dose: 0.5 mg Clopidogrel Bisulfate (Plavix) 75 mg PO DAILY [facility] Famotidine (Pepcid) 40 mg PO HS [facility] Last Admin: 01/14/18 22:29 Dose: 40 mg Hydromorphone HCl (Dilaudid) 0.5 mg IVP Q15M PRN PRN Reason: Pain, moderate (4-7) Stop: 01/15/18 18:04 Lactated Ringer's (Lactated Ringer's) 1,000 mls @ 75 mls/hr IV .[id number] [facility] Stop: 01/15/18 18:16 Lactated Ringer's (Lactated Ringer's) 1,000 mls @ 100 mls/hr IV .Q10H [facility] Insulin Human Regular (Humulin R Low) 0 units SC ACHS [facility] PRN Reason: Protocol Last Admin: 01/15/18 12:02 Dose: Not Given Metformin HCl (Glucophage Xr) 1,000 mg PO BID [facility] Last Admin: 01/14/18 18:48 Dose: 1,000 mg Morphine Sulfate (Morphine) 2 mg IVP Q4H PRN PRN Reason: Pain, moderate (4-7) Last Admin: 01/14/18 15:39 Dose: 2 mg Ondansetron HCl (Zofran Inj) 4 mg IVP ONCE PRN PRN Reason: Nausea/Vomiting Ondansetron HCl (Zofran Inj) 4 mg IVP Q6H PRN PRN Reason: Nausea/Vomiting Pioglitazone HCl (Actos) 15 mg PO DAILY [facility] Last Admin: 01/14/18 15:30 Dose: 15 mg Tamsulosin HCl (Flomax) 0.4 mg PO DAILY [facility] Last Admin: 01/15/18 09:10 Dose: Not Given Results - Vital Signs Recent Vital Signs: Last Vital Signs Temp 97.6 F 01/15/18 17:20 Pulse 89 01/15/18 17:20 Resp 20 01/15/18 17:20 BP 156/73 H 01/15/18 17:20 Pulse Ox 96 01/15/18 08:39 - Labs Result Diagrams: 01/15/18 06:00 01/15/18 06:00 Labs: Laboratory Results - last 24 hr 01/14/18 01/14/18 01/15/18 16:24 21:11 06:00 WBC 6.3 RBC 3.71 Hgb 11.4 L Hct 34.2 L MCV 92.2 MCH 30.7 MCHC 33.3 RDW 13.6 Plt Count 259 MPV 9.9 Gran % 65.8 Lymph % (Auto) 25.3 Posey % (Auto) 7.1 H Eos % (Auto) 1.6 Baso % (Auto) 0.2 Gran # 4.17 Lymph # (Auto) 1.6 Posey # (Auto) 0.5 Eos # (Auto) 0.1 Baso # (Auto) 0.01 PT INR APTT Sodium Potassium Chloride Carbon Dioxide Anion Gap BUN Creatinine Est GFR ( Amer) Est GFR (Non-Af Amer) POC Glucose (mg/dL) 240 H 205 H Random Glucose Calcium Total Bilirubin AST ALT Alkaline Phosphatase Total Protein Albumin Globulin Albumin/Globulin Ratio 01/15/18 01/15/18 01/15/18 06:00 06:00 07:52 WBC RBC Hgb Hct MCV MCH MCHC RDW Plt Count MPV Gran % Lymph % (Auto) Posey % (Auto) Eos % (Auto) Baso % (Auto) Gran # Lymph # (Auto) Posey # (Auto) Eos # (Auto) Baso # (Auto) PT 11.3 INR 0.98 APTT 29.7 Sodium 144 Potassium 5.1 H Chloride 105 Carbon Dioxide 26 Anion Gap 18 BUN 22 H Creatinine 1.0 Est GFR ( Amer) > 60 Est GFR (Non-Af Amer) > 60 POC Glucose (mg/dL) 139 H Random Glucose 108 Calcium 9.2 Total Bilirubin 0.2 AST 20 ALT 25 Alkaline Phosphatase 54 Total Protein 7.0 Albumin 4.1 Globulin 2.9 Albumin/Globulin Ratio 1.4 Attending/Attestation - Attestation I have personally seen and examined this patient.: Yes I have fully participated in the care of the patient.: Yes I have reviewed all pertinent clinical information: Yes Notes (Text): 01/15/18 17:40 The patient was seen and examined at the bedside. Patient care was discussed with resident Medical records, lab studies were reviewed and management issues were discussed and formulated. Agree with above treatment plans as outlined in 's note . Will admit to ICU for post-op monitoring.
[2018-01-15 18:44] LABS: HEMOGLOBIN 11.2 g/dL (14.0-18.0); MEAN CELL VOLUME 91.9 fl (80.0-105.0); MEAN CORPUSCULAR HEMOGLOBIN 31.4 pg (25.0-35.0); MEAN CORPUSCULAR HGB CONC 34.1 g/dl (31.0-37.0); MEAN PLATELET VOLUME 9.3 fl (7.0-11.0); RBC 3.57 10^6/uL (3.5-6.1); RED CELL DISTRIBUTION WIDTH 13.9 % (11.5-14.5); WHITE BLOOD COUNT 12.7 10^3/ul (4.5-11.0)
[2018-01-15] MEDS: Morphine 2 mg/ml ISec IVP PRN (22:41)
--- NOTE | 2018-01-16 00:22 | PN ---
DATE: 01/15/2018 PULMONARY PROGRESS NOTE REFERRING PHYSICIAN: Vivian Norris MD. SUBJECTIVE: Lying in the bed, head at 45 degrees. Night was unremarkable. No headache, no rhinitis. No nausea, no vomiting, no diarrhea. Leg pain, does have right foot discomfort. OBJECTIVE: GENERAL: In no acute distress. VITAL SIGNS: Temperature is 98, heart rate is 80, respiratory rate is 20, blood pressure 151/62, pulse ox 77% on nasal cannula. HEENT: Moist mucous membrane. Crowded airway. Mallampati score is 4. NECK: Supple. No JVD. LUNGS: Have a fair airflow with rhonchi. HEART: S1, S2. ABDOMEN: Soft, nontender, no organomegaly. EXTREMITIES: Has dressing on the right foot. NEUROLOGIC: Awake, alert, follows simple command. MEDICATIONS: He is on Actos 15 mg daily, Brovana inhaled twice a day, Flomax 0.4 mg daily, metformin 1000 mg twice a day, insulin coverage, Lipitor 20 mg which is on hold, morphine 2 mg every 4 hours p.r.n., Norvasc was placed on hold, Pepcid 40 mg daily, Plavix 75 mg daily, Pulmicort inhaled twice a day, Zofran on a p.r.n. basis. LABORATORY DATA: Shows hemoglobin 11.4, hematocrit 32.8, WBC 12.7, platelet is 214. INR 0.98, PTT is 30. Sodium 144, potassium 4.1, chloride 105, bicarbonate is 26, BUN 22, creatinine 1, glucose 108, calcium is 9.2. AST 20, ALT 25, alk phos is 54. Albumin is 4.1. Microbiology: Blood culture, urine culture, there is no growth. Has a myocardial stress test done yesterday which shows good LV function, otherwise unremarkable. IMPRESSION AND PLAN: Chronic obstructive lung disease, sleep apnea syndrome, peripheral vascular disease, nonhealing foot ulcer, history of osteomyelitis, anemia, diabetes, hyperlipidemia, hypertension. For right lower extremity bypass surgery. Pulmonary point view, doing well. Sleep apnea precaution. If sedated, will need close cardiopulmonary monitoring. May use BiPAP 12/8, 35% oxygen if needed noninvasive ventilation. Thank you and we will follow with you. Dane Muñoz MD [facility] # [id number]
[2018-01-16 00:55] LABS: HEMOGLOBIN 11.2 g/dL (14.0-18.0); MEAN CELL VOLUME 92.2 fl (80.0-105.0); MEAN CORPUSCULAR HGB CONC 33.6 g/dl (31.0-37.0); MEAN PLATELET VOLUME 9.3 fl (7.0-11.0); RBC 3.61 10^6/uL (3.5-6.1); RED CELL DISTRIBUTION WIDTH 14.1 % (11.5-14.5); WHITE BLOOD COUNT 10.8 10^3/ul (4.5-11.0)
[2018-01-16] MEDS ORDERED: Morphine 4 mg/ml ISec IM PRN (01:20)
[2018-01-16] MEDS ORDERED: Morphine 2 mg/ml ISec IVP ONE (01:24)
[2018-01-16 01:59] LABS: ALB/GLOB RATIO 1.2 (1.1-1.8); ALBUMIN 3.6 g/dL (3.0-4.8); ALT/SGPT 23 U/L (7-56); AST/SGOT 25 U/L (17-59); BLOOD UREA NITROGEN 17 mg/dL (7-21); CALCIUM 8.4 mg/dL (8.4-10.5); GFR AFRICAN-AMERICAN > 60; GFR NON-AFRICAN AMERICAN > 60
--- NOTE | 2018-01-16 02:37 | PN ---
DATE: 01/15/2018 SUBJECTIVE: The patient is in the ICU this time. The patient however was seen early this morning before his procedure and his testing. I was seen in room 374 bed 1 this morning. No fevers, no chills, no nausea. PHYSICAL EXAMINATION: VITAL SIGNS: Temperature 98, blood pressure is 140/80, respiratory rate of 18, heart rate of 85. HEENT: Unremarkable. NECK: Supple. LUNGS: Have decreased breath sounds. HEART: Normal S1, S2. ABDOMEN: Soft, nontender. No organomegaly. No rebound. No guarding. No masses. LABORATORY EXAMINATION: Reveals a white count of 12,700, hemoglobin of 11, platelets of 214. Chemistries reveals a BUN of 22, creatinine of 1. The urinalysis is noted to have negative. Microbiology reveals the urine cultures negative, blood cultures are negative. The patient was scheduled for a popliteal bypass, vascular surgery for today by Dr. Sylvia Teixeira. ASSESSMENT AND PLAN: A 77-year-old male with diabetes mellitus, peripheral vascular disease, chronic right foot ulcer on right foot lateral aspect nonhealing ulcer with no evidence of infection or cellulitis. The ulcer measures approximately 1.5 to 2 cm in diameter and chronically ill. Patient for vascular surgery today. Ulcer should be cultured. Deep tissue culture for Gram stain and routine bacterial cultures in addition the acid-fast bacillus stain and acid-fast bacillus cultures and fungal stain and fungal cultures. Currently, the patient is off of antibiotics and status post vascular surgery. Leland Rodas MD
[2018-01-16] MEDS: Morphine 4 mg/ml ISec IVP PRN ×5 (05:13→21:57)
[2018-01-16] MEDS: Insulin Reg-LOW-Coverage SC SCH ×5 (05:14→22:19)
[2018-01-16] MEDS ORDERED: Sodium Chloride 0.45% 500 ML IV SCH (05:15)
[2018-01-16] MEDS ORDERED: Lactated Ringer's 1,000 ML IV SCH ×2 (06:35→07:47)
[2018-01-16 06:56] LABS: EOS % 0.4 % (1.5-5.0); GRAN # 4.22 (1.4-6.5); LYMPH # 0.7 (1.2-3.4); LYMPH % 13.3 % (22.0-35.0); MEAN CELL VOLUME 92.3 fl (80.0-105.0); MEAN CORPUSCULAR HEMOGLOBIN 30.3 pg (25.0-35.0); MEAN CORPUSCULAR HGB CONC 32.8 g/dl (31.0-37.0); MONO # 0.6 (0.1-0.6); MONO % 10.3 % (1.0-6.0); RBC 2.21 10^6/uL (3.5-6.1); RED CELL DISTRIBUTION WIDTH 14.2 % (11.5-14.5); WHITE BLOOD COUNT 5.6 10^3/ul (4.5-11.0)
[2018-01-16 07:20] LABS: HEMOGLOBIN 6.7 g/dL (14.0-18.0)
[2018-01-16] MEDS: Budesonide 0.5 mg/2 ml Inhal Susp UD IH SCH ×2 (07:23→20:12)
[2018-01-16] MEDS: Arformoterol 15 mcg/2 ml Inh Sol IH SCH ×2 (07:23→20:12)
--- NOTE | 2018-01-16 08:02 | OP ---
PROCEDURE DATE: 01/15/2018 PREOPERATIVE DIAGNOSES: Severe peripheral vascular disease secondary to diabetes, arteriopathy, nonhealing right foot ulcer. POSTOPERATIVE DIAGNOSES: Severe peripheral vascular disease secondary to diabetes, arteriopathy, nonhealing right foot ulcer. PROCEDURE: Right above knee popliteal to dorsalis pedis bypass using reverse greater saphenous vein of the ipsilateral leg, on-table angiogram. SURGEON: Sylvia Teixeira MD DIRECTOR GAME: Aj Wooten DO TYPE OF ANESTHESIA: General. DESCRIPTION OF PROCEDURE: The patient was brought to the OR and placed supine on the OR table. After adequate general anesthesia had been accomplished, the entire right leg and lower abdomen were prepped with Chloraprep and draped out as sterile field. A #9 glove was used to cover the toes and the bottom of the foot. We first dissected out the dorsalis pedis artery. A longitudinal incision was made at the proximal dorsum of the foot between the extensor hallucis longus and extensor digitorum tendons. Incision was extended down to the subcutaneous tissue and fascia of the foot. The dorsalis pedis was dissected out. It was very thick wall at the proximal portion. As it tapered into the medial tarsal artery, it was a little bit softer, a 1 inch segment was dissected out. The attention was then turned to the greater saphenous vein. The greater saphenous vein from the saphenofemoral junction to midcalf was dissected out via interrupted longitudinal incision. The branches of that were ligated with 3-0 silk, and clipped and divided. The greater saphenous vein was detached from the saphenofemoral junction all the way down to the midcalf. It was then reversed and dilated up using heparinized saline. The vein was thin walled, measured from 4 to 5 mm in diameter at the proximal end and at the distal end 3 to 4 mm. It was saved for future use. Next, attention was turned to the medial calf. The vein harvest incision was continued down through the fascia. The gastrocnemius muscle was identified, dissected out, and retracted laterally. The popliteal artery at the below knee level was soft; however, at the level of the knee, it was highly calcified to the point that the pulse was not palpable, so we detached the medial head of the gastrocnemius to extend the incision up to the above knee popliteal artery. It was dissected further back to the distal third of the popliteal artery at the thigh. At that point, though it was thickened, a pulse was palpable. A 1 inch segment of that was dissected out and looped out using a vessel loop. The patient was then systemically heparinized. Using the tourniquet, a pressure up to 300 mmHg at the calf. The arterial inflow to the foot was controlled. The reverse greater saphenous vein was anastomosed to the dorsalis pedis artery in an end-to-side fashion after systemic heparinization. Upon completion of the anastomosis, the vein was passed via a previously created subcutaneous tunnel up to the above knee popliteal artery. The vein to popliteal artery anastomosis was performed in an end-to-side fashion using 6-0 Prolene continuous suture. This was performed while the inflow artery was controlled using a pneumatic tourniquet. The total tourniquet time was 93 minutes. Upon completion of the anastomosis, an angiogram was performed by placing a needle in the popliteal artery proximal to the takeoff of the bypass. It shows a patent bypass graft with no twisting and a patent anastomosis at the foot. Good hemostasis was assured using electrocoagulation. All the vein harvest site was closed in 2 layers using 2-0 Monocryl continuous suture and skin giancarlo for skin. The popliteal incision was closed by reapproximating the medial gastrocnemius muscle to cover the bypass and sewing the border of the gastrocnemius muscle to the fascia such that the whole bypass graft was covered with muscle. The skin was closed with skin giancarlo. The foot incision was closed in 2 layers using 3-0 Monocryl subcuticular suture and 2-0 nylon interrupted suture for skin. The patient tolerated the procedure well and was returned to the recovery room prior to leaving the OR. He was extubated and his foot was warm and there was a palpable dorsalis pedis pulse distal to the anastomosis. Sylvia Teixeira MD [facility]
--- NOTE | 2018-01-16 08:08 | CP.PCM.PN ---
Subjective - Date & Time of Evaluation Date of Evaluation: 01/16/18 Time of Evaluation: 07:45 - Subjective Subjective: Vascular Surgery Note for Dr. Teixeira Patient seen and examined at bedside. No acute event overnight. Patient is s/p popliteal to dorsalis pedis bypass with great saphenous vein graft POD#1. He states pain is controlled with medication. Urine output was 1100 cc/12 hrs. Patient has no complaints at this time. Objective - Vital Signs/Intake and Output Vital Signs (last 24 hours): Temp Pulse Resp BP Pulse Ox 97.6 F 87 11 L 141/63 99 01/16/18 00:00 01/16/18 06:00 01/15/18 19:30 01/15/18 19:30 01/15/18 19:30 - Medications Medications: Current Medications Amlodipine Besylate (Norvasc) 5 mg PO DAILY [facility] Last Admin: 01/15/18 09:11 Dose: Not Given Arformoterol Tartrate (Brovana) 15 mcg IH [id number] [facility] Last Admin: 01/16/18 07:23 Dose: 15 mcg Atorvastatin Calcium (Lipitor) 20 mg PO DAILY [facility] Last Admin: 01/15/18 09:10 Dose: Not Given Budesonide (Pulmicort Respules) 0.5 mg IH [id number] [facility] Last Admin: 01/16/18 07:23 Dose: 0.5 mg Clopidogrel Bisulfate (Plavix) 75 mg PO DAILY [facility] Famotidine (Pepcid) 40 mg PO HS [facility] Last Admin: 01/15/18 22:41 Dose: 40 mg Lactated Ringer's (Lactated Ringer's) 1,000 mls @ 50 mls/hr IV .Q20H [facility] Last Admin: 01/16/18 07:58 Dose: 50 mls/hr Insulin Human Regular (Humulin R Low) 0 units SC ACHS [facility] PRN Reason: Protocol Last Admin: 01/16/18 07:44 Dose: 1 u Metformin HCl (Glucophage Xr) 1,000 mg PO BID [facility] Last Admin: 01/14/18 18:48 Dose: 1,000 mg Morphine Sulfate (Morphine) 4 mg IVP Q4H PRN PRN Reason: Pain, severe (8-10) Last Admin: 01/16/18 05:13 Dose: 4 mg Ondansetron HCl (Zofran Inj) 4 mg IVP ONCE PRN PRN Reason: Nausea/Vomiting Ondansetron HCl (Zofran Inj) 4 mg IVP Q6H PRN PRN Reason: Nausea/Vomiting Pioglitazone HCl (Actos) 15 mg PO DAILY [facility] Last Admin: 01/14/18 15:30 Dose: 15 mg Tamsulosin HCl (Flomax) 0.4 mg PO DAILY [facility] Last Admin: 01/15/18 09:10 Dose: Not Given - Labs Labs: 01/16/18 06:35 01/16/18 01:35 PT 11.3 SECONDS (9.4-12.5) 01/15/18 06:00 INR 0.98 (0.93-1.08) 01/15/18 06:00 APTT 29.7 Seconds (25.1-36.5) 01/15/18 06:00 - Constitutional Appears: No Acute Distress - Head Exam Head Exam: ATRAUMATIC, NORMOCEPHALIC - Eye Exam Eye Exam: EOMI, Normal appearance Pupil Exam: PERRL - ENT Exam ENT Exam: Mucous Membranes Dry - Respiratory Exam Respiratory Exam: NORMAL BREATHING PATTERN - Cardiovascular Exam Cardiovascular Exam: REGULAR RHYTHM, +S1, +S2 - GI/Abdominal Exam GI & Abdominal Exam: Soft, Normal Bowel Sounds. absent: Tenderness - Extremities Exam Extremities Exam: Normal Capillary Refill Additional comments: RLE: dressing clean dry and intact, PT/DP pulses palpable, cap refill < 2 seconds, no motor/sensory deficit noted - Neurological Exam Neurological Exam: Alert, Awake, Oriented x3 - Psychiatric Exam Psychiatric exam: Normal Affect, Normal Mood - Skin Skin Exam: Dry, Intact, Normal Color, Warm Assessment and Plan - Assessment and Plan (Free Text) Assessment: 77 M s/p popliteal to dorsalis pedis bypass with great saphenous vein graft POD# 1 Plan: -HHD -IV fluids can be discontinued after adequate oral intake -Strict I's & O's -Vascular checks -PT/OT -Patient may be downgraded -Further recommendations as per Dr. Puneet Wooten PGY1
[2018-01-16 09:01] LABS: ALB/GLOB RATIO 1.4 (1.1-1.8); ALBUMIN 3.6 g/dL (3.0-4.8); ALT/SGPT 23 U/L (7-56); AST/SGOT 18 U/L (17-59); BLOOD UREA NITROGEN 14 mg/dL (7-21); CALCIUM 8.4 mg/dL (8.4-10.5); GFR AFRICAN-AMERICAN > 60; GFR NON-AFRICAN AMERICAN > 60
[2018-01-16 09:22] LABS: BASO # 0.01 K/mm3 (0.0-2.0); BASO % 0.1 % (0.0-3.0); EOS % 0.3 % (1.5-5.0); GRAN # 7.44 (1.4-6.5); GRAN % 78.6 % (50.0-68.0); HEMOGLOBIN 10.6 g/dL (14.0-18.0); LYMPH # 1.2 (1.2-3.4); LYMPH % 12.6 % (22.0-35.0); MEAN CELL VOLUME 92.1 fl (80.0-105.0); MEAN CORPUSCULAR HGB CONC 33.7 g/dl (31.0-37.0); MEAN PLATELET VOLUME 8.9 fl (7.0-11.0); MONO # 0.8 (0.1-0.6); MONO % 8.4 % (1.0-6.0); RBC 3.42 10^6/uL (3.5-6.1); RED CELL DISTRIBUTION WIDTH 14.2 % (11.5-14.5); WHITE BLOOD COUNT 9.5 10^3/ul (4.5-11.0)
[2018-01-16] MEDS ORDERED: Magnesium Sulfate 2 gm/50 ml 2 GM/50 ML BAG IVPB ONE (09:41)
--- NOTE | 2018-01-16 10:32 | RAD ---
PROCEDURE: Right femoral angiogram intraoperative HISTORY: FEM. POP. BYPASS (RIGHT) COMPARISON: TECHNIQUE: 30.4 seconds of fluoro time. Cumulative dose 18.47 mGy. Multiple intraoperative a angiograms obtained FINDINGS: Multiple angiographic images were obtained of a right distal bypass graft. The study was performed by Dr. Teixeira IMPRESSION: As above
--- NOTE | 2018-01-16 11:54 | CP.PCM.PN ---
<Jimmy Palacios - Last Filed: 01/16/18 11:51> Subjective - Date & Time of Evaluation Date of Evaluation: 01/16/18 Time of Evaluation: 11:51 - Subjective Subjective: Podiatry progress note: Dr. Peter/Dr. Harvey 77 year old male was seen at bedside with attending Dr. Pteer for chronic, non- healing right foot ulceration. Patient is 1 day s/p vascular intervention. Patient is AAOx3, appears to be resting comfortably in his bed. Denies of any acute overnight events. Denies F/N/V/C/SOB/CP/headache. No other pedal complains. Objective - Vital Signs/Intake and Output Vital Signs (last 24 hours): Temp Pulse Resp BP Pulse Ox 97.6 F 82 11 L 140/66 99 01/16/18 00:00 01/16/18 10:23 01/15/18 19:30 01/16/18 10:23 01/15/18 19:30 - Medications Medications: Current Medications Amlodipine Besylate (Norvasc) 5 mg PO DAILY [facility] Last Admin: 01/16/18 10:23 Dose: 5 mg Arformoterol Tartrate (Brovana) 15 mcg IH [id number] [facility] Last Admin: 01/16/18 07:23 Dose: 15 mcg Atorvastatin Calcium (Lipitor) 20 mg PO DIN [facility] Budesonide (Pulmicort Respules) 0.5 mg IH [id number] [facility] Last Admin: 01/16/18 07:23 Dose: 0.5 mg Clopidogrel Bisulfate (Plavix) 75 mg PO DAILY [facility] Famotidine (Pepcid) 40 mg PO HS [facility] Last Admin: 01/15/18 22:41 Dose: 40 mg Lactated Ringer's (Lactated Ringer's) 1,000 mls @ 50 mls/hr IV .Q20H [facility] Last Admin: 01/16/18 07:58 Dose: 50 mls/hr Insulin Human Regular (Humulin R Low) 0 units SC ACHS [facility] PRN Reason: Protocol Last Admin: 01/16/18 11:17 Dose: 1 u Metformin HCl (Glucophage Xr) 1,000 mg PO BID [facility] Last Admin: 01/14/18 18:48 Dose: 1,000 mg Morphine Sulfate (Morphine) 4 mg IVP Q4H PRN PRN Reason: Pain, severe (8-10) Last Admin: 01/16/18 10:30 Dose: 4 mg Ondansetron HCl (Zofran Inj) 4 mg IVP ONCE PRN PRN Reason: Nausea/Vomiting Ondansetron HCl (Zofran Inj) 4 mg IVP Q6H PRN PRN Reason: Nausea/Vomiting Pioglitazone HCl (Actos) 15 mg PO DAILY [facility] Last Admin: 01/16/18 10:32 Dose: 15 mg Tamsulosin HCl (Flomax) 0.4 mg PO DAILY [facility] Last Admin: 01/16/18 10:23 Dose: 0.4 mg - Labs Labs: 01/16/18 08:01 01/16/18 08:30 PT 11.3 SECONDS (9.4-12.5) 01/15/18 06:00 INR 0.98 (0.93-1.08) 01/15/18 06:00 APTT 29.7 Seconds (25.1-36.5) 01/15/18 06:00 - Constitutional Appears: Well, Non-toxic, No Acute Distress - Extremities Exam Additional comments: LE focused exam: Vasc: DP/PT pulses severely diminished b/l. CFT < 3 seconds to all digits. Skin temperature warm to warm from proximal to distal WNL. No edema noted b/l Neuro: Epicritic and protective sensation grossly intact b/l Derm: 2 cm x 3 cm x 0.2 cm ulceration noted to dorsolateral right foot with almost 100% fibrous base. No malodor, no drainage, no periwound erythema, no tracking, tunneling, undermining or probe to bone. No other clinical signs of infection. Otherwise, no open lesions, wounds, maceration, xerosis, abnormal pigmentation or abnormal growths noted b/l MSK: POP to ulceration site. No other gross deformities noted - Neurological Exam Neurological Exam: Alert, Awake, Oriented x3 - Psychiatric Exam Psychiatric exam: Normal Affect, Normal Mood Assessment and Plan - Assessment and Plan (Free Text) Assessment: 77 year old male was evaluated for non-healing, chronic dorsal right foot ulceration Plan: Patient seen and evaluated Discussed plan with attending Dr. Peter Afebrile, absent leukocytosis, ESR: 28 during admission Wound cleaned with saline and dressed with optifoam Podiatry will hold off the wound debridement with graft placement at this time; will perform this as an outpatient Stable from podiatry standpoint Podiatry will follow up while patient in house Upon discharge, follow up with Dr. Harvey/Dr. Peter at the wound care center <Juan Alberto Peter - Last Filed: 01/16/18 17:58> Objective - Vital Signs/Intake and Output Vital Signs (last 24 hours): Temp Pulse Resp BP Pulse Ox 98.6 F 87 19 120/64 95 01/16/18 08:00 01/16/18 11:30 01/16/18 11:30 01/16/18 11:30 01/16/18 11:30 Intake and Output: 01/16/18 01/16/18 06:59 18:59 Intake Total 570 Output Total 1200 Balance -630 - Medications Medications: Current Medications Amlodipine Besylate (Norvasc) 5 mg PO DAILY [facility] Last Admin: 01/16/18 10:23 Dose: 5 mg Arformoterol Tartrate (Brovana) 15 mcg IH [id number] [facility] Last Admin: 01/16/18 07:23 Dose: 15 mcg Atorvastatin Calcium (Lipitor) 20 mg PO DIN [facility] Budesonide (Pulmicort Respules) 0.5 mg IH [id number] [facility] Last Admin: 01/16/18 07:23 Dose: 0.5 mg Clopidogrel Bisulfate (Plavix) 75 mg PO DAILY [facility] Famotidine (Pepcid) 40 mg PO HS [facility] Last Admin: 01/15/18 22:41 Dose: 40 mg Lactated Ringer's (Lactated Ringer's) 1,000 mls @ 50 mls/hr IV .Q20H [facility] Last Admin: 01/16/18 07:58 Dose: 50 mls/hr Insulin Human Regular (Humulin R Low) 0 units SC ACHS [facility] PRN Reason: Protocol Last Admin: 01/16/18 11:17 Dose: 1 u Metformin HCl (Glucophage Xr) 1,000 mg PO BID [facility] Last Admin: 01/14/18 18:48 Dose: 1,000 mg Morphine Sulfate (Morphine) 4 mg IVP Q4H PRN PRN Reason: Pain, severe (8-10) Last Admin: 01/16/18 14:05 Dose: 4 mg Ondansetron HCl (Zofran Inj) 4 mg IVP ONCE PRN PRN Reason: Nausea/Vomiting Ondansetron HCl (Zofran Inj) 4 mg IVP Q6H PRN PRN Reason: Nausea/Vomiting Last Admin: 01/16/18 14:06 Dose: 4 mg Pioglitazone HCl (Actos) 15 mg PO DAILY [facility] Last Admin: 01/16/18 10:32 Dose: 15 mg Tamsulosin HCl (Flomax) 0.4 mg PO DAILY [facility] Last Admin: 01/16/18 10:23 Dose: 0.4 mg - Labs Labs: 01/16/18 08:01 01/16/18 08:30 PT 11.3 SECONDS (9.4-12.5) 01/15/18 06:00 INR 0.98 (0.93-1.08) 01/15/18 06:00 APTT 29.7 Seconds (25.1-36.5) 01/15/18 06:00 Attending/Attestation - Attestation I have personally seen and examined this patient.: Yes I have fully participated in the care of the patient.: Yes I have reviewed all pertinent clinical information, including history, physical exam and plan: Yes
--- NOTE | 2018-01-16 13:55 | PN ---
DATE: 01/16/2018 TYPE OF DICTATION: Progress note. REASON FOR CONSULTATION AND FOLLOWUP: Preop evaluation, postop followup for posterior tibial and right dorsalis pedis bypass, nonhealing ulcer, severe PAD. SUBJECTIVE: The patient is in ICU 129, bed 3. Denies any chest pain, shortness of breath, or any palpitations. OBJECTIVE: GENERAL: Not in apparent distress. VITAL SIGNS: Temperature afebrile, heart rate 87, blood pressure 141/60. HEENT: PERRLA, intact. NECK: Supple. No carotid bruit or thyromegaly. CHEST: Clear to auscultation. HEART: S1 and S2 regular. ABDOMEN: Soft. EXTREMITIES: Clubbing and cyanosis negative. Palpable distal pulse on operative site of right lower extremity. LABORATORY DATA: Blood workup as follows, WBC 5.6, hemoglobin 6.7, hematocrit 20.4, platelet count 132. Chemistry shows sodium 143, potassium 4, chloride 105, carbon dioxide 26, anion gap of 16, BUN 17, creatinine 0.9. Distal pulses, palpable right dorsalis pedis. IMPRESSION: A 77-year-old male with severe peripheral artery disease, status post angiogram; trifurcation disease; nonhealing ulcers; status post right popliteal and dorsalis pedis bypass; history of diabetes; hypertension. Postoperative course, the patient is stable, drop in hemoglobin from 11 to 6.7. RECOMMENDATIONS: We will repeat lab; if less than 8, we will transfuse 2 units of packed RBC, cut down the fluid to 50 mL an hour. Continue atorvastatin. Continue Plavix. Continue aspirin. We will follow with you. Thank you Dr. Norris for providing us the opportunity in taking care of the patient, Ozzie Jones. Dane Ray MD
[2018-01-16 18:18] VITALS: RESP 20
--- NOTE | 2018-01-16 19:24 | PN ---
DATE: 01/16/2018 PULMONARY PROGRESS NOTE REFERRING PHYSICIAN: Vivian Norris MD SUBJECTIVE: He is lying in the bed, examined in the ICU, head at 45 degree. Therapist is at bedtime. Yesterday event noted status post left shoulder extremity arterial bypass surgery. No headaches, no rhinitis, no nausea, no vomiting, no diarrhea. Right leg pain is better. OBJECTIVE: GENERAL: In no acute distress. VITAL SIGNS: Temperature is 98, heart rate is 85, respiratory rate is 20, blood pressure 120/64, and pulse ox 94% on room air. HEENT: Moist mucous membranes. Crowded airway. Mallampati score is 4. NECK: Supple. No JVD. LUNGS: Fair airflow. No rhonchi. HEART: S1 and S2. ABDOMEN: Soft and nontender. No organomegaly. EXTREMITIES: Right leg bypass area is covered with a dressing. Foot pain is a little better. Lower extremities warm to touch. NEUROLOGIC: Awake, alert, and follows simple commands. MEDICATIONS: He is on Actos 15 mg daily, Brovana inhaled twice a day, Flomax 0.4 mg daily, metformin 1000 mg twice a day, insulin coverage, Lactated Ringer 1000 mg twice a day, Lipitor 20 mg daily, morphine 4 mg every 4 hours p.r.n., Norvasc 5 mg daily, Pepcid 40 mg daily, Plavix 75 mg daily, Pulmicort inhaled twice a day, Zofran on a p.r.n. basis. LABORATORY DATA: Shows hemoglobin 10.6, hematocrit 31.5, WBC 9.5, and platelets 196. Sodium 140, potassium of 4, chloride 102, bicarbonate 27. BUN 14, creatinine 0.8. Glucose 192. Calcium is 8.4, phosphorous 3. AST 18, ALT 23, alkaline phosphatase is 46, albumin is 3.6. Microbiology: Blood culture and urine culture, there is no growth. IMPRESSION AND PLAN: Chronic obstructive lung disease, may have sleep apnea syndrome, peripheral vascular disease, nonhealing right foot ulcer, history of osteomyelitis, anemia, diabetes, hyperlipidemia, hypertension, status post right lower extremity arterial bypass surgery. Pulmonary point of view, doing well. Spoke to therapist and also spoke to nursing staff. Requested to discontinue Holland catheter. Out of bed to chair. Physical therapy. Sleep apnea precaution. Careful with sedation. Follow up labs in the morning. Thank you and we will follow with you. Dane Muñoz MD [facility] # [id number]
--- NOTE | 2018-01-16 19:37 | CP.PCM.PN ---
Subjective - Date & Time of Evaluation Date of Evaluation: 01/16/18 Time of Evaluation: 08:25 - Subjective Subjective: No fevers, not in distress. Objective - Vital Signs/Intake and Output Vital Signs (last 24 hours): Temp Pulse Resp BP Pulse Ox 97.6 F 87 11 L 141/63 99 01/15/18 17:20 01/15/18 19:30 01/15/18 19:30 01/15/18 19:30 01/15/18 19:30 Intake and Output: 01/15/18 01/16/18 18:59 06:59 Intake Total 0 Output Total 1650 Balance -1650 - Medications Medications: Current Medications Amlodipine Besylate (Norvasc) 5 mg PO DAILY [facility] Last Admin: 01/15/18 09:11 Dose: Not Given Arformoterol Tartrate (Brovana) 15 mcg IH [id number] [facility] Last Admin: 01/15/18 19:59 Dose: 15 mcg Atorvastatin Calcium (Lipitor) 20 mg PO DAILY [facility] Last Admin: 01/15/18 09:10 Dose: Not Given Budesonide (Pulmicort Respules) 0.5 mg IH [id number] [facility] Last Admin: 01/15/18 19:59 Dose: 0.5 mg Clopidogrel Bisulfate (Plavix) 75 mg PO DAILY [facility] Famotidine (Pepcid) 40 mg PO HS [facility] Last Admin: 01/14/18 22:29 Dose: 40 mg Lactated Ringer's (Lactated Ringer's) 1,000 mls @ 100 mls/hr IV .Q10H [facility] Last Admin: 01/15/18 17:30 Dose: 100 mls/hr Insulin Human Regular (Humulin R Low) 0 units SC ACHS [facility] PRN Reason: Protocol Last Admin: 01/15/18 16:30 Dose: Not Given Metformin HCl (Glucophage Xr) 1,000 mg PO BID [facility] Last Admin: 01/14/18 18:48 Dose: 1,000 mg Morphine Sulfate (Morphine) 2 mg IVP Q4H PRN PRN Reason: Pain, moderate (4-7) Last Admin: 01/14/18 15:39 Dose: 2 mg Ondansetron HCl (Zofran Inj) 4 mg IVP ONCE PRN PRN Reason: Nausea/Vomiting Ondansetron HCl (Zofran Inj) 4 mg IVP Q6H PRN PRN Reason: Nausea/Vomiting Pioglitazone HCl (Actos) 15 mg PO DAILY [facility] Last Admin: 01/14/18 15:30 Dose: 15 mg Tamsulosin HCl (Flomax) 0.4 mg PO DAILY [facility] Last Admin: 01/15/18 09:10 Dose: Not Given - Labs Labs: 01/15/18 18:32 01/15/18 06:00 PT 11.3 SECONDS (9.4-12.5) 01/15/18 06:00 INR 0.98 (0.93-1.08) 01/15/18 06:00 APTT 29.7 Seconds (25.1-36.5) 01/15/18 06:00 - Constitutional Appears: Chronically Ill - Head Exam Head Exam: NORMAL INSPECTION - Respiratory Exam Respiratory Exam: Decreased Breath Sounds - Cardiovascular Exam Cardiovascular Exam: +S1, +S2 - GI/Abdominal Exam GI & Abdominal Exam: Soft. absent: Tenderness Assessment and Plan - Assessment and Plan (Free Text) Plan: Assessment non-healing right foot ulcer, chronic, probably related to peripheral arterial disease, S/P angioplasty and bypass surgery POD #1 DM history of right foot fracture history of right foot osteomyelitis Plan Continue to monitor off antibiotics and will need deep tissue or bone cx for bacteria, AFB, fungi may need further imaging of the foot to rule out osteomyelitis
--- NOTE | 2018-01-17 00:24 | PN ---
DATE: 01/15/2018 SUBJECTIVE: The patient is a 77-year-old male. The patient was seen and examined on the bedside on 01/15/2018. Looking comfortable. Night was unremarkable. Sometimes coughing, having shortness of breath. Otherwise, no nausea, vomiting, diarrhea. No hematuria. No hematochezia. No headache or dizziness. No chest pain. No palpitation. PHYSICAL EXAMINATION: VITAL SIGNS: Temperature 98, heart rate 80, respiratory rate 20, blood pressure 150/62, pulse oximetry 77% on nasal cannula. HEENT: Head normocephalic, atraumatic. Eyes PERRLA. Extraocular muscles intact. Conjunctivae clear. Nose patent. Mucous membrane moist. NECK: Supple. No carotid bruit. No JVD or thyromegaly. CHEST: Bilaterally symmetrical. HEART: S1 and S2 positive. LUNGS: Clear to auscultation. ABDOMEN: Soft. Bowel sounds positive. No organomegaly. EXTREMITIES: Has dressing on the right foot. LABORATORY DATA: Hemoglobin 11.4, hematocrit 32.8, white blood cells 12.7, platelets 214. Sodium 144, potassium 4.1, BUN 22, creatinine 1, glucose 108, AST 20, ALT 25. MEDICATIONS: Actos, Brovana, Flomax, metformin, insulin, Lipitor, morphine, Norvasc, Pepcid, Plavix, Pulmicort, Zofran. ASSESSMENT AND PLAN: Mr. Ozzie Jones, a 77-year-old male with chronic obstructive lung disease, sleep apnea syndrome, peripheral vascular disease, nonhealing foot ulcer, history of osteomyelitis of the foot, anemia, diabetes mellitus, hypercholesterolemia, hypertension, for right lower extremity bypass surgery, sleep apnea syndrome. We called Pulmonary consult and Cardiac consult for surgical clearance. Dr. Muñoz ordered bilevel positive airway pressure 12/8, 35% oxygen. If needed, noninvasive ventilator. Gastrointestinal, deep venous thrombosis prophylaxis. Repeat labs. We will follow up. Vivian Norris MD
--- NOTE | 2018-01-17 01:01 | PN ---
DATE: 01/16/2018 SUBJECTIVE: The patient is a 77-year-old male. The patient was seen and examined at the bedside on 01/16/2018, looking comfortable. Has a dressing on the right leg, status post surgery. No nausea, vomiting, or diarrhea. No hematuria or hematochezia. No headache, no dizziness. No chest pain, no palpitation. PHYSICAL EXAMINATION: VITAL SIGNS: Temperature 97.6, pulse 57, respiratory rate 11, blood pressure 141/53, pulse oximetry of 99. HEENT: Head normocephalic, atraumatic. Eyes: PERRLA. Extraocular muscles intact. Conjunctivae clear. Nose patent. Mucous membrane moist. NECK: Supple. No carotid bruit. No JVD or thyromegaly. CHEST: Bilaterally symmetrical. HEART: S1 and S2 positive. LUNGS: Clear to auscultation. ABDOMEN: Soft. Bowel sounds present. No organomegaly. EXTREMITIES: Upper extremities, no edema and no cyanosis. Lower extremities, right leg has dressing. MEDICATIONS: Brovana, Lipitor, Pulmicort, Plavix, Pepcid, Lactated Ringer, insulin, Glucophage, Zofran, Flomax. LABORATORY DATA: White blood cells 11.7, hemoglobin 11.2, hematocrit 32.8, platelets 214. Sodium 144, potassium 5.1, BUN 22, creatinine 1, glucose 108. ASSESSMENT AND PLAN: Mr. Ozzie Jones is a 77-year-old male with leukocytosis; anemia; hyperkalemia; renal insufficiency; has nonhealing right foot ulcer, chronic, probably related to peripheral arterial disease, status post angioplasty and bypass surgery, postoperative day #1; history of right foot fracture; history of right foot osteomyelitis. According to ID, continue monitoring off antibiotics, will need deep tissue or bone culture for bacteria, acid-fast bacillus, fungi. May need further imaging of the foot to rule out osteomyelitis as per ID. Seen by Dr. Muñoz, Pulmonology and Critical Care. History of obstructive sleep apnea syndrome, chronic obstructive pulmonary disease, diabetes, hypercholesterolemia, hypertension. Length of time discussion done with nurse practitioner, patient's staff. As per Dr. Muñoz, discontinue the Holland catheter, out of bed, physical therapy. Physical Therapy suggested subacute rehab. Social Workers are working on that. Careful with sedation. Repeat labs. We will follow up. Vivian Norris MD [facility] # [id number]
[2018-01-17] MEDS: Morphine 4 mg/ml ISec IVP PRN (06:22)
--- NOTE | 2018-01-17 07:38 | CP.PCM.PN ---
Subjective - Date & Time of Evaluation Date of Evaluation: 01/17/18 Time of Evaluation: 07:15 - Subjective Subjective: Vascular Surgery Note for Dr. Teixeira Patient seen and examined at bedside. No acute event overnight. Patient is s/p popliteal to dorsalis pedis bypass with great saphenous vein graft POD#2. He states pain is controlled with medication. He is tolerating diet. He admits to passing flatus but no BM yet. Patient has no complaints at this time. Objective - Vital Signs/Intake and Output Vital Signs (last 24 hours): Temp Pulse Resp BP Pulse Ox 99.6 F 86 20 130/66 94 L 01/16/18 18:00 01/16/18 18:00 01/16/18 18:00 01/16/18 18:00 01/16/18 18:00 Intake and Output: 01/17/18 01/17/18 06:59 18:59 Intake Total 540 120 Output Total 400 625 Balance 140 -505 - Medications Medications: Current Medications Amlodipine Besylate (Norvasc) [address] [facility] Last Admin: 01/16/18 10:23 Dose: 5 mg Arformoterol Tartrate (Brovana) [id number] [facility] Last Admin: 01/16/18 20:12 Dose: 15 mcg Atorvastatin Calcium (Lipitor) [address] [facility] Last Admin: 01/16/18 18:08 Dose: 20 mg Budesonide (Pulmicort Respules) 0.[id number] [facility] Last Admin: 01/16/18 20:12 Dose: 0.5 mg Clopidogrel Bisulfate (Plavix) [address] [facility] Famotidine (Pepcid) [address] [facility] Last Admin: 01/16/18 21:55 Dose: 40 mg Lactated Ringer's (Lactated Ringer's) 1,000 mls @ 50 mls/hr IV .Q20H [facility] Last Admin: 01/16/18 07:58 Dose: 50 mls/hr Insulin Human Regular (Humulin R Low) [address] [facility] PRN Reason: Protocol Last Admin: 01/16/18 22:19 Dose: Not Given Metformin HCl (Glucophage Xr) 1,[address] [facility] Last Admin: 01/14/18 18:48 Dose: 1,000 mg Morphine Sulfate (Morphine) 4 mg IVP Q4H PRN PRN Reason: Pain, severe (8-10) Last Admin: 01/17/18 06:22 Dose: 4 mg Ondansetron HCl (Zofran Inj) 4 mg IVP ONCE PRN PRN Reason: Nausea/Vomiting Ondansetron HCl (Zofran Inj) 4 mg IVP Q6H PRN PRN Reason: Nausea/Vomiting Last Admin: 01/16/18 14:06 Dose: 4 mg Pioglitazone HCl (Actos) [address] [facility] Last Admin: 01/16/18 10:32 Dose: 15 mg Tamsulosin HCl (Flomax) 0.[address] [facility] Last Admin: 01/16/18 10:23 Dose: 0.4 mg - Labs Labs: 01/16/18 08:01 01/16/18 08:30 PT 11.3 SECONDS (9.4-12.5) 01/15/18 06:00 INR 0.98 (0.93-1.08) 01/15/18 06:00 APTT 29.7 Seconds (25.1-36.5) 01/15/18 06:00 - Additional Findings Additional findings: - Constitutional Appears: No Acute Distress - Head Exam Head Exam: ATRAUMATIC, NORMOCEPHALIC - Eye Exam Eye Exam: EOMI, Normal appearance Pupil Exam: PERRL - ENT Exam ENT Exam: Mucous Membranes Dry - Respiratory Exam Respiratory Exam: NORMAL BREATHING PATTERN - Cardiovascular Exam Cardiovascular Exam: REGULAR RHYTHM, +S1, +S2 - GI/Abdominal Exam GI & Abdominal Exam: Soft, Normal Bowel Sounds. absent: Tenderness - Extremities Exam Extremities Exam: Normal Capillary Refill Additional comments: RLE: dressing clean dry and intact, PT/DP pulses palpable, cap refill < 2 seconds, no motor/sensory deficit noted - Neurological Exam Neurological Exam: Alert, Awake, Oriented x3 - Psychiatric Exam Psychiatric exam: Normal Affect, Normal Mood - Skin Skin Exam: Dry, Intact, Normal Color, Warm Assessment and Plan - Assessment and Plan (Free Text) Assessment: 77 M s/p popliteal to dorsalis pedis bypass with great saphenous vein graft POD# 2 Plan: -HHD -Strict I's & O's -Vascular checks -PT/OT -Patient will go to TCU -Further recommendations as per Dr. Puneet Wooten PGY1
[2018-01-17] MEDS: Budesonide 0.5 mg/2 ml Inhal Susp UD IH SCH (07:55)
[2018-01-17] MEDS: Arformoterol 15 mcg/2 ml Inh Sol IH SCH (07:55)
[2018-01-17 07:56] VITALS: BP 131/66; PULSE 76; TEMP 98.6; O2SAT 95
--- NOTE | 2018-01-17 08:01 | CP.PCM.PN ---
<Sharan Dhillon - Last Filed: 01/17/18 07:55> Subjective - Date & Time of Evaluation Date of Evaluation: 01/17/18 Time of Evaluation: 07:56 - Subjective Subjective: Podiatry progress note: Dr. Peter/Dr. Harvey 77 year old male was seen at bedside with attending Dr. Peter for chronic, non- healing right foot ulceration. Patient is 2 days s/p vascular intervention. Patient is AAOx3. Denies of any acute overnight events. Denies F/N/V/C/SOB/CP/ headache. No other pedal complains. Objective - Vital Signs/Intake and Output Vital Signs (last 24 hours): Temp Pulse Resp BP Pulse Ox 99.6 F 86 20 130/66 94 L 01/16/18 18:00 01/16/18 18:00 01/16/18 18:00 01/16/18 18:00 01/16/18 18:00 Intake and Output: 01/17/18 01/17/18 06:59 18:59 Intake Total 540 120 Output Total 400 625 Balance 140 -505 - Medications Medications: Current Medications Amlodipine Besylate (Norvasc) 5 mg PO DAILY [facility] Last Admin: 01/16/18 10:23 Dose: 5 mg Arformoterol Tartrate (Brovana) 15 mcg IH [id number] [facility] Last Admin: 01/16/18 20:12 Dose: 15 mcg Atorvastatin Calcium (Lipitor) 20 mg PO DIN [facility] Last Admin: 01/16/18 18:08 Dose: 20 mg Budesonide (Pulmicort Respules) 0.5 mg IH [id number] [facility] Last Admin: 01/16/18 20:12 Dose: 0.5 mg Clopidogrel Bisulfate (Plavix) 75 mg PO DAILY [facility] Famotidine (Pepcid) 40 mg PO HS [facility] Last Admin: 01/16/18 21:55 Dose: 40 mg Lactated Ringer's (Lactated Ringer's) 1,000 mls @ 50 mls/hr IV .Q20H [facility] Last Admin: 01/16/18 07:58 Dose: 50 mls/hr Insulin Human Regular (Humulin R Low) 0 units SC ACHS [facility] PRN Reason: Protocol Last Admin: 01/16/18 22:19 Dose: Not Given Metformin HCl (Glucophage Xr) 1,000 mg PO BID [facility] Last Admin: 01/14/18 18:48 Dose: 1,000 mg Morphine Sulfate (Morphine) 4 mg IVP Q4H PRN PRN Reason: Pain, severe (8-10) Last Admin: 01/17/18 06:22 Dose: 4 mg Ondansetron HCl (Zofran Inj) 4 mg IVP ONCE PRN PRN Reason: Nausea/Vomiting Ondansetron HCl (Zofran Inj) 4 mg IVP Q6H PRN PRN Reason: Nausea/Vomiting Last Admin: 01/16/18 14:06 Dose: 4 mg Pioglitazone HCl (Actos) 15 mg PO DAILY [facility] Last Admin: 01/16/18 10:32 Dose: 15 mg Tamsulosin HCl (Flomax) 0.4 mg PO DAILY [facility] Last Admin: 01/16/18 10:23 Dose: 0.4 mg - Labs Labs: 01/16/18 08:01 01/16/18 08:30 PT 11.3 SECONDS (9.4-12.5) 01/15/18 06:00 INR 0.98 (0.93-1.08) 01/15/18 06:00 APTT 29.7 Seconds (25.1-36.5) 01/15/18 06:00 - Constitutional Appears: Well, Non-toxic, No Acute Distress - Extremities Exam Additional comments: LE focused exam: Derm: 3 cm x 2.5 cm x 0.4 cm ulceration noted to lateral right foot with 90% fibrous, 10% granular base. No malodor, no drainage, no periwound erythema, no tracking, tunneling, undermining or probe to bone. No other clinical signs of infection. Otherwise, no open lesions, wounds, maceration, xerosis, abnormal pigmentation or abnormal growths noted b/l Vasc: DP/PT pulses severely diminished b/l. CFT < 3 seconds to all digits. Skin temperature warm to warm from proximal to distal WNL. No edema noted b/l Neuro: Epicritic and protective sensation grossly intact b/l MSK: POP to ulceration site. No other gross deformities noted - Neurological Exam Neurological Exam: Alert, Awake - Psychiatric Exam Psychiatric exam: Normal Affect, Normal Mood - Skin Skin Exam: Normal Color, Warm Assessment and Plan - Assessment and Plan (Free Text) Assessment: 77 year old male was evaluated for non-healing, chronic Lateral right foot ulceration Plan: Patient seen and evaluated Discussed plan with attending Dr. Peter Afebrile, absent leukocytosis, ESR: 28 during admission Wound cleaned with saline and dressed with optifoam Podiatry will hold off the wound debridement with graft placement at this time; will perform this as an outpatient Stable from podiatry standpoint Podiatry will follow up while patient in house Upon discharge, follow up with Dr. Harvey/Dr. Peter at the wound care center <Juan Alberto Peter - Last Filed: 01/17/18 08:19> Objective - Vital Signs/Intake and Output Vital Signs (last 24 hours): Temp Pulse Resp BP Pulse Ox 98.6 F 76 20 131/66 95 01/17/18 06:00 01/17/18 06:00 01/17/18 06:00 01/17/18 06:00 01/17/18 06:00 Intake and Output: 01/17/18 01/17/18 06:59 18:59 Intake Total 540 120 Output Total 400 625 Balance 140 -505 - Medications Medications: Current Medications Amlodipine Besylate (Norvasc) 5 mg PO DAILY [facility] Last Admin: 01/16/18 10:23 Dose: 5 mg Arformoterol Tartrate (Brovana) 15 mcg IH [id number] [facility] Last Admin: 01/17/18 07:55 Dose: 15 mcg Atorvastatin Calcium (Lipitor) 20 mg PO DIN [facility] Last Admin: 01/16/18 18:08 Dose: 20 mg Budesonide (Pulmicort Respules) 0.5 mg IH [id number] [facility] Last Admin: 01/17/18 07:55 Dose: 0.5 mg Clopidogrel Bisulfate (Plavix) 75 mg PO DAILY [facility] Famotidine (Pepcid) 40 mg PO HS [facility] Last Admin: 01/16/18 21:55 Dose: 40 mg Lactated Ringer's (Lactated Ringer's) 1,000 mls @ 50 mls/hr IV .Q20H [facility] Last Admin: 01/16/18 07:58 Dose: 50 mls/hr Insulin Human Regular (Humulin R Low) 0 units SC ACHS [facility] PRN Reason: Protocol Last Admin: 01/16/18 22:19 Dose: Not Given Metformin HCl (Glucophage Xr) 1,000 mg PO BID [facility] Last Admin: 01/14/18 18:48 Dose: 1,000 mg Morphine Sulfate (Morphine) 4 mg IVP Q4H PRN PRN Reason: Pain, severe (8-10) Last Admin: 01/17/18 06:22 Dose: 4 mg Ondansetron HCl (Zofran Inj) 4 mg IVP ONCE PRN PRN Reason: Nausea/Vomiting Ondansetron HCl (Zofran Inj) 4 mg IVP Q6H PRN PRN Reason: Nausea/Vomiting Last Admin: 01/16/18 14:06 Dose: 4 mg Pioglitazone HCl (Actos) 15 mg PO DAILY [facility] Last Admin: 01/16/18 10:32 Dose: 15 mg Tamsulosin HCl (Flomax) 0.4 mg PO DAILY [facility] Last Admin: 01/16/18 10:23 Dose: 0.4 mg - Labs Labs: 01/16/18 08:01 01/16/18 08:30 PT 11.3 SECONDS (9.4-12.5) 01/15/18 06:00 INR 0.98 (0.93-1.08) 01/15/18 06:00 APTT 29.7 Seconds (25.1-36.5) 01/15/18 06:00 Attending/Attestation - Attestation I have personally seen and examined this patient.: Yes I have fully participated in the care of the patient.: Yes I have reviewed all pertinent clinical information, including history, physical exam and plan: Yes
[2018-01-17 08:22] LABS: HEMOGLOBIN 9.5 g/dL (14.0-18.0); MEAN CORPUSCULAR HEMOGLOBIN 30.4 pg (25.0-35.0); MEAN PLATELET VOLUME 9.4 fl (7.0-11.0); RBC 3.13 10^6/uL (3.5-6.1); RED CELL DISTRIBUTION WIDTH 13.9 % (11.5-14.5); WHITE BLOOD COUNT 9.4 10^3/ul (4.5-11.0)
[2018-01-17 08:35] LABS: BLOOD UREA NITROGEN 14 mg/dL (7-21); CALCIUM 8.2 mg/dL (8.4-10.5); GFR AFRICAN-AMERICAN > 60; GFR NON-AFRICAN AMERICAN > 60
[2018-01-17] MEDS ORDERED: Oxycodone/Acetaminophen 5/325 mg Tab PO PRN (08:49)
[2018-01-17] MEDS: Insulin Reg-LOW-Coverage SC SCH ×2 (10:00→13:34)
--- NOTE | 2018-01-17 11:53 | CP.PCM.PN ---
Subjective - Date & Time of Evaluation Date of Evaluation: 01/17/18 Time of Evaluation: 10:20 - Subjective Subjective: No fevers, not in distress, comfortable in bed. Objective - Vital Signs/Intake and Output Vital Signs (last 24 hours): Temp Pulse Resp BP Pulse Ox 98.6 F 76 20 131/66 95 01/17/18 06:00 01/17/18 06:00 01/17/18 06:00 01/17/18 06:00 01/17/18 06:00 Intake and Output: 01/17/18 01/17/18 06:59 18:59 Intake Total 540 120 Output Total 400 625 Balance 140 -505 - Medications Medications: Current Medications Acetaminophen (Tylenol 325mg Tab) 650 mg PO Q6H PRN PRN Reason: Pain, moderate (4-7) Amlodipine Besylate (Norvasc) 5 mg PO DAILY [facility] Last Admin: 01/16/18 10:23 Dose: 5 mg Arformoterol Tartrate (Brovana) 15 mcg IH [id number] [facility] Last Admin: 01/17/18 07:55 Dose: 15 mcg Atorvastatin Calcium (Lipitor) 20 mg PO DIN [facility] Last Admin: 01/16/18 18:08 Dose: 20 mg Budesonide (Pulmicort Respules) 0.5 mg IH [id number] [facility] Last Admin: 01/17/18 07:55 Dose: 0.5 mg Clopidogrel Bisulfate (Plavix) 75 mg PO DAILY [facility] Famotidine (Pepcid) 40 mg PO HS [facility] Last Admin: 01/16/18 21:55 Dose: 40 mg Lactated Ringer's (Lactated Ringer's) 1,000 mls @ 50 mls/hr IV .Q20H [facility] Last Admin: 01/16/18 07:58 Dose: 50 mls/hr Insulin Human Regular (Humulin R Low) 0 units SC ACHS [facility] PRN Reason: Protocol Last Admin: 01/16/18 22:19 Dose: Not Given Metformin HCl (Glucophage Xr) 1,000 mg PO BID [facility] Last Admin: 01/14/18 18:48 Dose: 1,000 mg Ondansetron HCl (Zofran Inj) 4 mg IVP ONCE PRN PRN Reason: Nausea/Vomiting Ondansetron HCl (Zofran Inj) 4 mg IVP Q6H PRN PRN Reason: Nausea/Vomiting Last Admin: 01/16/18 14:06 Dose: 4 mg Oxycodone/Acetaminophen (Percocet 5/325 Mg Tab) 1 tab PO Q6H PRN PRN Reason: Pain, severe (8-10) Stop: 01/20/18 08:50 Pioglitazone HCl (Actos) 15 mg PO DAILY [facility] Last Admin: 01/16/18 10:32 Dose: 15 mg Tamsulosin HCl (Flomax) 0.4 mg PO DAILY [facility] Last Admin: 01/16/18 10:23 Dose: 0.4 mg - Labs Labs: 01/17/18 08:00 01/17/18 08:00 PT 11.3 SECONDS (9.4-12.5) 01/15/18 06:00 INR 0.98 (0.93-1.08) 01/15/18 06:00 APTT 29.7 Seconds (25.1-36.5) 01/15/18 06:00 - Constitutional Appears: Chronically Ill - Head Exam Head Exam: NORMAL INSPECTION - ENT Exam ENT Exam: Mucous Membranes Moist - Neck Exam Neck Exam: absent: Meningismus - Respiratory Exam Respiratory Exam: Decreased Breath Sounds - Cardiovascular Exam Cardiovascular Exam: +S1, +S2 - GI/Abdominal Exam GI & Abdominal Exam: Soft. absent: Tenderness Assessment and Plan - Assessment and Plan (Free Text) Plan: Assessment non-healing right foot ulcer, chronic, probably related to peripheral arterial disease, S/P angioplasty and bypass surgery POD #2 DM history of right foot fracture history of right foot osteomyelitis Plan Continue to monitor off antibiotics and will need deep tissue or bone cx for bacteria, AFB, fungi may need further imaging of the foot to rule out osteomyelitis - awaiting plan of Podiatry to see if this will be done as outpatient
--- NOTE | 2018-01-17 14:07 | PN ---
DATE: 01/17/2018 REASON FOR THE CONSULTATION AND FOLLOWUP: Preop evaluation, postop followup, status post tibial and right dorsalis pedis bypass, nonhealing ulcer, severe PAD. SUBJECTIVE: The patient denies any chest pain, shortness of breath, lying flat on the bed. OBJECTIVE: GENERAL: Not in any apparent distress, getting IV fluid 50 mL an hour. VITAL SIGNS: Temperature afebrile, heart rate is 76, blood pressure 131/66. HEENT: PERRLA. Extraocular muscles intact. NECK: Supple. No carotid bruit. No thyromegaly. CHEST: Clear to auscultation. HEART: S1 and S2 regular. ABDOMEN: Soft. EXTREMITIES: Clubbing and cyanosis negative. LABORATORY DATA: Blood workup as follows: WBC 9.4, hemoglobin 9.5, hematocrit 28.8, platelet count 186. Chemistry shows sodium 130, potassium 4, chloride 104, carbon dioxide 26, anion gap of 13, BUN 14, creatinine 0.9. Magnesium 1.9. IMPRESSION: Severe peripheral arterial disease, status post right popliteal and dorsalis pedis bypass, 1+ pulse; diabetes; hypertension; hyperlipidemia. Postoperative course is stable. Postop hemoglobin dropped to 6.7, repeat hemoglobin 10.6, probably it is a lab error or hemodilution, now his hemoglobin is 9.5. RECOMMENDATIONS: Discontinue IV fluid. Continue low-dose beta dayana. Out of bed to chair. Continue amlodipine. Continue Plavix. We will follow with you. Since the patient does not have a stent, the patient came in reason unknown, we will leave him on Plavix for now. Negative stress test for ischemia. Because of severe PAD and the patient was on Plavix, we will leave further Plavix for now. Monitor H and H. We will repeat the blood workup in the morning. Thank you, Dr. Norris for providing us the opportunity in taking care of the patient, Ozzie Jones. Dane Ray MD
--- NOTE | 2018-01-17 21:33 | PN ---
DATE: 01/17/2018 PULMONARY PROGRESS NOTE REFERRING PHYSICIAN: Vivian Norris MD. SUBJECTIVE: He is lying in the bed, head at 45 degrees. Night was unremarkable. No headache, no rhinitis. No nausea, no vomiting, no diarrhea. Decreased right leg pain. PHYSICAL EXAMINATION: GENERAL: In no acute distress. VITAL SIGNS: Temperature is 98, heart rate 76, respiratory rate is 20, blood pressure 131/66, pulse ox 95% on room air. HEENT: Moist mucous membrane. Crowded airway. NECK: Supple. No JVD. LUNGS: Have a fair airflow. HEART: S1 and S2. ABDOMEN: Soft, nontender. No organomegaly. EXTREMITIES: Right lower extremity has a dressing on the bypass area, right foot warm to touch. NEUROLOGIC: Awake, alert, and follows simple command. MEDICATIONS: Reviewed. No new changes in medication reported since yesterday. LABORATORY DATA: Review shows hemoglobin 9.5, hematocrit 28.8, WBC 9.4, platelet count is 186. Sodium 138, potassium 4.1, chloride 104, bicarbonate 26, BUN 14, creatinine 0.9, glucose 164, calcium is 8.2, magnesium is 1.9. IMPRESSION AND PLAN: Severe peripheral vascular disease with nonhealing right foot ulcer, status post bypass surgery; chronic lung disease; may have sleep apnea syndrome; anemia; diabetes; hyperlipidemia; hypertension; activities of daily living dysfunction. The patient will be transferred to subacute today for continue rehab, sleep apnea precaution. Recommend sleep study upon discharge as an outpatient, also need pulmonary function test to assure stability of lung as an outpatient. Dane Muñoz MD
== END 2018-01-17 15:58 | DRG 254 ==
LOC: ED 10:10 → ERH 14:53 → 3RSO 16:50 → CCU 01-15 17:35 → 3RSO 01-16 11:43
PROVIDERS: ADMIT Internal Medicine; ATTEND Internal Medicine
PROC: 06BP0ZZ Excision of Right Saphenous Vein, Open Approach (ICD-10-PCS; 2018-01-15)
PROC: 30233N1 Transfusion of Nonautologous Red Blood Cells into Peripheral Vein, Percutaneous Approach (ICD-10-PCS; 2018-01-15)
PROC: 041M09P Bypass Right Popliteal Artery to Foot Artery with Autologous Venous Tissue, Open Approach (ICD-10-PCS; principal; 2018-01-15 09:00)
DX: E11.51 Type 2 diabetes mellitus with diabetic peripheral angiopathy without gangrene (principal); E11.621 Type 2 diabetes mellitus with foot ulcer; L97.519 Non-pressure chronic ulcer of other part of right foot with unspecified severity; D64.9 Anemia, unspecified; E78.00 Pure hypercholesterolemia, unspecified; E78.5 Hyperlipidemia, unspecified; E87.5 Hyperkalemia; G47.33 Obstructive sleep apnea (adult) (pediatric); H40.9 Unspecified glaucoma; I25.10 Atherosclerotic heart disease of native coronary artery without angina pectoris; I10 Essential (primary) hypertension; I34.0 Nonrheumatic mitral (valve) insufficiency; N28.9 Disorder of kidney and ureter, unspecified; J44.9 Chronic obstructive pulmonary disease, unspecified; S82.831D Other fracture of upper and lower end of right fibula, subsequent encounter for closed fracture with routine healing; W01.0XXD Fall on same level from slipping, tripping and stumbling without subsequent striking against object, subsequent encounter; Z87.891 Personal history of nicotine dependence; Z79.84 Long term (current) use of oral hypoglycemic drugs; Z87.442 Personal history of urinary calculi